=== PATIENT | female | born 1945 | race Caucasian/White ===

== ENCOUNTER → 2017-12-29 13:12 | Outpatient (CLI) | payer MEDICARE, OTHER, SELFPAY ==
--- NOTE | 2017-12-29 13:15 | DI.US.S_ITS ---
PROCEDURE: US PELVIC COMPLETE INDICATIONS: LEFT OVARIAN CYST TECHNIQUE: Real-time scanning was performed of the pelvic organs, with image documentation. Additional endovaginal scanning was necessary due to incomplete visualization of the adnexal and endometrial structures by transabdominal scanning. COMPARISON: [facility], , PELVIC COMPLETE, 10/05/2015, 8:07. [facility], , PELVIC COMPLETE, 12/03/2016, 10:34. FINDINGS: Transabdominal scanning: Limited scanning through the kidneys shows no hydronephrosis. No pathologic free abdominal or pelvic fluid. Endovaginal scanning: Uterus: Uterus is normal in size at 6.1 x 2.5 x 3.5 cm. The endometrium measures 1.2 mm in combined thickness. Ovaries: Simple cyst again seen involving the left ovary not significantly changed from prior examination measuring 3.0 x 2.0 x 2.5 cm compared to 2.4 x 2.2 x 2.5 cm on prior exam. IMPRESSION: 1. No significant interval change in appearance or size of simple left ovarian cyst with the subtle size differences likely technically related. Continued annual sonographic surveillance recommended. Dictated by: Jose LOYOLA Interpreted: Ildefonso Dodson MD on 12/29/2017 at 14:11 Approved by: Ildefonso Dodson M.D. on 12/29/2017 at 15:43
== END ==
PROVIDERS: PCP Physician Assistant; Visit Provider Physician Assistant
DX: N83.292 Other ovarian cyst, left side (principal)
CPT/HCPCS: 76830; 76856

== ENCOUNTER → 2018-02-16 15:51 | Outpatient (CLI) | payer MEDICARE, OTHER, SELFPAY ==
--- NOTE | 2018-02-16 15:54 | DI.RAD.S_ITS ---
PROCEDURE: XR LUMBAR SPINE MIN 4V INDICATIONS: Right hip pain TECHNIQUE: 5 views of the lumbar spine were acquired. COMPARISON: [facility], CR, XR HIP W PEL IF DONE RT 2V, 02/16/2018, 15:55. FINDINGS: Bones: 5 nonrib-bearing vertebrae are present. Mild levoscoliosis. Multilevel disc degeneration, severe at the L1-L2 level. Moderate lower lumbar spine facet joint arthropathy, worse at L4-L5 and L5-S1. Mild anterior wedging of the L1 vertebral body, suggestive of prior chronic fracture. No suspicious bony lesions. Left hip arthroplasty incompletely visualized. Soft tissues: Overlying bowel gas pattern is normal. No suspicious soft tissue calcifications. IMPRESSION: Mild to moderate multilevel degenerative changes of the lumbar spine as described above. Dictated by: Jose Whitley [facility] Interpreted: Neno Taylor MD on 02/16/2018 at 17:06 Approved by: Neno Taylor M.D. on 02/16/2018 at 19:50
--- NOTE | 2018-02-16 15:54 | DI.RAD.S_ITS ---
PROCEDURE: XR HIP W PEL IF DONE RT 2V INDICATIONS: right hip pain/pain in right lower leg TECHNIQUE: AP pelvis and lateral view of the right hip acquired. COMPARISON: [facility], CR, XR PELVIS W LATERAL HIP LT, 05/05/2015, 15:11. [facility], CR, HIP 2V LEFT, 04/11/2015, 7:42. FINDINGS: Bones: Left hip arthroplasty present hardware in expected position. No periprosthetic fracture seen. No evidence of loosening. There is severe narrowing of the right hip joint with periarticular osteophyte formation and subchondral sclerosis and cystic change. Soft tissues: Overlying postoperative changes are noted with surgical clips noted over the right iliac wing. No suspicious soft tissue densities. IMPRESSION: Left hip arthroplasty without evidence of acute hardware complication. Severe right hip joint degenerative change. Dictated by: Jose Whitley [facility] Interpreted: Neno Taylor MD on 02/16/2018 at 17:04 Approved by: Neno Taylor M.D. on 02/16/2018 at 19:48
== END ==
PROVIDERS: PCP Physician Assistant; Visit Provider Physician Assistant
DX: M16.11 Unilateral primary osteoarthritis, right hip (principal); M51.36 Other intervertebral disc degeneration, lumbar region; M25.551 Pain in right hip; M79.661 Pain in right lower leg; Z96.642 Presence of left artificial hip joint
CPT/HCPCS: 72110; 73502

== ENCOUNTER → 2018-05-18 14:51 | Outpatient (CLI) | payer MEDICARE, OTHER, SELFPAY ==
[2018-05-18 17:47] LABS: Add Manual Diff / Slide Review NO; Basophils Percent Auto 1.4 % (0-2); Eosinophils Percent Auto 2.7 % (2-4); Hematocrit 38.8 % (36-46); Lymphocytes Percent Auto 27.5 % (25-40); Mean Corpuscular HGB Conc 33.6 % (30-36); Mean Corpuscular Hemoglobin 31.8 PG (26-34); Mean Corpuscular Volume 94.6 fL (80-100); Monocytes Percent Auto 8.7 % (3-14); Neutrophils Absolute Auto 3100 /uL (3000-5900); Neutrophils Percent Auto 59.7 % (50-75); Platelet Count 231 X10^3/uL (150-400); Red Blood Cell Count 4.11 X10^6/uL (4.0-5.2); Red Cell Distribution Width 14.1 % (11.6-14.8); White Blood Cell Count 5.2 X10^3/uL (4.5-11.0)
[2018-05-18 18:21] LABS: BUN Creatinine Ratio 33.3 (6-22); Blood Urea Nitrogen 20 mg/dL (7-17); Calcium 9.2 mg/dL (8.4-10.2); Carbon Dioxide 32 mmol/L (22-32); Chloride 97 mmol/L (98-107); Estimated Glomerular Filt Rate > 60.0 mL/min (>60); Glucose 70 mg/dL (80-110); HEMOLYSIS < 15 (0-50); Potassium 4.4 mmol/L (3.4-5.1); Sodium 139 mmol/L (137-145)
== END ==
PROVIDERS: PCP Physician Assistant; Visit Provider Physician Assistant
DX: Z01.818 Encounter for other preprocedural examination (principal)
CPT/HCPCS: 36415; 80048; 85025; 87797

== ENCOUNTER → 2018-05-21 10:15 | Outpatient (CLI) | payer MEDICARE, OTHER, SELFPAY ==
[2018-05-24 14:18] LABS: Fecal Immunochemical Test NOT DETECTED
== END ==
PROVIDERS: PCP Physician Assistant; Visit Provider Physician Assistant
DX: Z12.11 Encounter for screening for malignant neoplasm of colon (principal)
CPT/HCPCS: 82274

== ENCOUNTER 2018-05-26 20:56 | Emergency (ER) | payer MEDICARE, OTHER, SELFPAY ==
[2018-05-26 20:59] VITALS: BP 154/88; PULSE 62; RESP 20; TEMP 36.9; O2SAT 100
[2018-05-27 00:25] VITALS: BP 157/72; PULSE 74; RESP 18; O2SAT 99
[2018-05-27 01:17] VITALS: BP 131/73; PULSE 70; RESP 18; O2SAT 98
--- NOTE | 2018-05-27 01:48 | ED.WOUNDLAC ---
HPI - Wound/Laceration General Chief Complaint: Wound/Laceration Stated Complaint: CAT BITE TO LT HAND, SWELLING Time Seen by Provider: 05/27/18 01:34 Source: patient Mode of arrival: ambulatory Limitations: no limitations History of Present Illness HPI narrative: patient is a 73-year-old female who presents with left hand injury. She was feeding her neighbor's cat this morning when the cat bit her. She has some swelling. No numbness or tingling in her fingers. A still able to move it. The cat has all of his shots. Her immunizations are up-to-date as well Onset (ago): hour(s) Related Data Home Medications Medication Instructions Recorded Confirmed [JAY/MAG/ZINC] 1,000 mg PO QDAY #0 10/30/17 05/18/18 [CBD OIL] TOPICAL BID #0 10/30/17 05/18/18 aspirin 81 mg tablet,delayed 81 mg PO DAILY 12/29/17 05/18/18 release Flaxseed oil 1,200 mg PO .qday 02/16/18 05/18/18 Glucosamine/Chondroitin See Label Instructions .ROUTE 02/16/18 05/18/18 .COMPLEX Multivitamin 1 tab PO .QDAY 02/16/18 05/18/18 Turmeric See Label Instructions .ROUTE 02/16/18 05/18/18 .COMPLEX Tylenol Arthritis See Label Instructions .ROUTE 02/16/18 05/18/18 .COMPLEX Previous Rx's Medication Instructions Recorded ranitidine 150 mg tablet 150 mg PO BID #180 tab 03/31/18 diclofenac 1 % topical gel See Label Instructions TOP QID 05/18/18 #100 gram amoxicillin-pot clavulanate 1 tab PO Q12H #14 tab 05/27/18 [Augmentin] Allergies Allergy/AdvReac Type Severity Reaction Status Date / Time NSAIDS (Non-Steroidal AdvReac Severe STRICTURE Verified 05/18/18 13:56 Anti-Inflamma BETWEEN MY [NSAIDS (NON-STEROIDAL STOMACH ANTI-INFLAMMA] AND INTESTINES oxycodone [OXYCODONE] AdvReac Severe DIZZINESS Verified 05/18/18 13:56 AND FAINTING Review of Systems Review of Systems GENERAL: Denies chills,fever HEENT: Denies throat pain RESPIRATORY: Denies dyspnea, cough, wheezing CARDIOVASCULAR: Denies chest pain, palpitations GASTROINTESTINAL: Denies nausea, vomiting MUSCULOSKELETAL: Denies extremity pain, injury SKIN: See HPI NEUROLOGIC: Denies weakness, dizziness, headache, numbness 8 point review of systems is negative except for those stated above and HPI PFSH Medical History Hypertension (Chronic Unknown) Osteoarthritis (Chronic Unknown) Osteopenia (Chronic Unknown) Parathyroid disorder (Chronic Unknown) Breast cancer (Resolved ~1996) Duodenal stricture (Resolved 12/2015) History of atrial fibrillation (Resolved 2013) 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 Social History Smoking Status: Never smoker second hand exposure: No alcohol intake: former substance use type: does not use Exam Initial Vital Signs Initial Vital Signs: Vital Signs Temperature 98.4 F 05/26/18 20:59 Pulse Rate 62 05/26/18 20:59 Respiratory Rate 20 05/26/18 20:59 Blood Pressure 154/88 H 05/26/18 20:59 Pulse Oximetry 100 05/26/18 20:59 GENERAL: Well-appearing, well-nourished and in no acute distress. CARDIOVASCULAR: peripheral pulses in tact, cap refill <2 sec RESPIRATORY: No respiratory distress, speaks in full sentences without difficulty EXTREMITIES: Normal range of motion, no clubbing or edema. Neurovascularly intact NEUROLOGICAL: Cranial nerves II through XII grossly intact. Normal gait and speech. SKIN: small puncture wounds on the left dorsal hand all full flexion extension of all fingers mild swelling no streaking no erythema no gross Course Orders Ordered: Discontinued Medications Amoxicillin/Clavulanate Potassium (Augmentin 875-125 Mg) 1 tab PO NOW ONE Stop: 05/27/18 01:40 Last Admin: 05/27/18 01:59 Dose: 1 tab Diphtheria/Tetanus/Acell Pertussis (Adacel) 0.5 ml IM .ONCE ONE Stop: 05/27/18 01:59 Last Admin: 05/27/18 01:59 Dose: 0.5 ml Vital Signs - 8 hr 05/27/18 00:25 05/27/18 01:17 05/27/18 02:04 Temperature 98.4 F Pulse Rate 74 70 79 Respiratory Rate 18 18 18 Blood Pressure 133/79 Blood Pressure [Right Arm] 157/72 H 131/73 Pulse Oximetry 99 98 100 Discharge Plan Departure Patient Disposition: Home Clinical Impression: Cat bite of left hand Discharge Date/Time: 05/27/18 02:10 Interventions: ED Discharge Assessment Last Done: 05/27/18 02:04 Instructions: Animal Bites Activity Restrictions/Additional Instructions: *You have been diagnosed with cat bite left hand *What to do: keep clean and dry with soap and water change dressing tomorrow *Continue to take medications as directed Augmentin twice daily for 7 days faxed to [facility] in [place] *Follow up with your primary care provider in 2-3 days *Return to ER if you should have red streaking, increased finger swelling, decreased motion any new, worsening or concerning symptoms Prescriptions: New amoxicillin-pot clavulanate [Augmentin] 875-125 mg tablet 1 tab PO Q12H Qty: 14 RF: 0 No Action diclofenac sodium 1 % gel See Label Instructions TOP QID Qty: 100 RF: 3 aspirin [Adult Aspirin Regimen] 81 mg tablet,delayed release (DR/EC) 81 mg PO DAILY RF: 0 Flaxseed oil 1,200 mg PO .qday RF: 0 Turmeric See Patient Comments .ROUTE .COMPLEX RF: 0 Tylenol Arthritis See Patient Comments .ROUTE .COMPLEX RF: 0 Multivitamin 1 tab PO .QDAY RF: 0 Glucosamine/Chondroitin See Patient Comments .ROUTE .COMPLEX RF: 0 [JAY/MAG/ZINC] 1,000 mg PO QDAY Qty: 0 RF: 0 [CBD OIL] Topical BID Qty: 0 RF: 0 ranitidine HCl 150 mg tablet 150 mg PO BID Qty: 180 RF: 3 Referrals: Lacey Lennon PA-C [Primary Care Provider] -
[2018-05-27] MEDS: AMOXICILLIN/CLAV 875/125 MG 1 TAB PO (01:59)
[2018-05-27] MEDS: TET,DIPH,PERTUSS(ACELL),VAC/PF 0.5 ML SYRINGE IM (01:59)
[2018-05-27 02:04] VITALS: BP 133/79; PULSE 79; RESP 18; TEMP 36.9; O2SAT 100
== END 2018-05-27 02:10 | disposition home or self-care (01) ==
PROVIDERS: Emergency Provider Emergency Medicine; Family Provider Physician Assistant; PCP Physician Assistant
DX: S61.452A Open bite of left hand, initial encounter (principal); W55.01XA Bitten by cat, initial encounter
CPT/HCPCS: 90471; 99283; 90715

== ENCOUNTER → 2018-05-29 10:04 | Outpatient (CLI) | payer MEDICARE, OTHER, SELFPAY | PROVIDERS: PCP Physician Assistant; Visit Provider Physician Assistant | DX: Z01.818 Encounter for other preprocedural examination (principal) | CPT/HCPCS: 93005 ==

== ENCOUNTER → 2018-08-10 12:48 | Outpatient (CLI) | payer MEDICARE, OTHER, SELFPAY ==
--- NOTE | 2018-08-10 12:50 | DI.MG.S_ITS ---
BILATERAL DIGITAL SCREENING MAMMOGRAM 3D/2D WITH CAD POST LUMPECTOMY: 08/10/2018 CLINICAL: Routine screening. Personal history of left breast cancer. Family history of breast cancer. Comparison is made to exams dated: 05/13/2017 mammogram, 04/26/2016 mammogram, and 03/27/2015 mammogram - [facility]. The tissue of both breasts is heterogeneously dense. This may lower the sensitivity of mammography. Current study was also evaluated with a Computer Aided Detection (CAD) system. The left breast has post-operative findings. There are stable benign calcifications in both breasts. No significant masses, calcifications, or other findings are seen in either breast. IMPRESSION: There is no mammographic evidence of malignancy. A 1 year screening mammogram is recommended. This exam was interpreted at Station ID: [id number]. NOTE: For mammograms, a report in lay terms will be sent to the patient. Approximately 15% of breast malignancies will not be visualized mammographically. In the management of a palpable breast mass, a negative mammogram must not discourage biopsy of a clinically suspicious lesion. Electronically Signed By: Marcus ellington/murali:08/10/2018 14:32:16 letter sent: Normal Exam ACR BI-RADS Category 2: Benign Finding(s) 3342F
== END ==
PROVIDERS: Family Provider Physician Assistant; PCP Physician Assistant; Visit Provider Physician Assistant
DX: Z12.31 Encounter for screening mammogram for malignant neoplasm of breast (principal); Z85.3 Personal history of malignant neoplasm of breast; Z80.3 Family history of malignant neoplasm of breast
CPT/HCPCS: 77063; 77067

== ENCOUNTER → 2019-09-06 13:06 | Outpatient (CLI) | payer MEDICARE, OTHER, SELFPAY ==
--- NOTE | 2019-09-06 | DI.MG.S_ITS ---
BILATERAL DIGITAL SCREENING MAMMOGRAM 3D/2D WITH CAD POST LUMPECTOMY: 09/06/2019 CLINICAL: Routine screening. Personal history of left breast cancer. Family history of breast cancer. Comparison is made to exams dated: 08/10/2018 mammogram, 05/13/2017 mammogram, and 04/26/2016 mammogram - [facility]. The tissue of both breasts is heterogeneously dense. This may lower the sensitivity of mammography. Current study was also evaluated with a Computer Aided Detection (CAD) system. The left breast has post-operative findings. There are benign diffuse punctate, round, and vascular calcifications in both breasts that are not significantly changed. There is a possible 0.4 cm oval equal density asymmetry in the right breast anterior depth superior region seen on the mediolateral oblique view only. No other significant masses, calcifications, or other findings are seen in either breast. IMPRESSION: INCOMPLETE: NEEDS ADDITIONAL IMAGING EVALUATION The possible 0.4 cm oval equal density asymmetry in the right breast is indeterminate. Additional views with possible ultrasound are recommended. This exam was interpreted at Station ID: [id number]. NOTE: For mammograms, a report in lay terms will be sent to the patient. Approximately 15% of breast malignancies will not be visualized mammographically. In the management of a palpable breast mass, a negative mammogram must not discourage biopsy of a clinically suspicious lesion. Electronically Signed By: Marcus Zavaleta M.D. aty/:09/06/2019 14:09:28 letter sent: Additional Imaging Needed ACR BI-RADS Category 0: Incomplete 3340F
--- NOTE | 2019-09-06 13:08 | DI.US.S_ITS ---
PROCEDURE: US PELVIC COMPLETE INDICATIONS: F/U LT OVARIAN CYST, ANNUAL SURVEILLANCE TECHNIQUE: Real-time scanning was performed of the pelvic organs, with image documentation. Additional endovaginal scanning was necessary due to incomplete visualization of the adnexal and endometrial structures by transabdominal scanning. COMPARISON: [facility], , US PELVIC COMPLETE, 12/29/2017, 13:32. FINDINGS: Transabdominal scanning: Limited scanning through the kidneys shows no hydronephrosis. No pathologic free abdominal or pelvic fluid. Endovaginal scanning: Uterus: Uterus is normal in size at 4.8 x 2.6 x 3.3 cm. The endometrium measures 1.3 mm in combined thickness. Ovaries: Right ovary measures 1.9 x 1.1 x 1.9 cm. Left ovary measures 4.0 x 2.4 x 2.9 cm. Redemonstration of a simple left ovarian cyst measuring approximately 3.5 x 2.4 x 2.7 cm. It previously measured 3.0 x 2.0 x 2.5 cm. No new or suspicious ovarian/adnexal mass lesions. IMPRESSION: Persistent simple left ovarian cyst measuring up to 3.5 cm in maximum dimension, previously 3.0 cm. No suspicious features identified. Recommend continued annual surveillance. Otherwise, normal appearance of the bilateral ovaries/adnexa. Dictated by: Marcus Zavaleta M.D. on 09/07/2019 at 9:50 Approved by: Marcus Zavaleta M.D. on 09/07/2019 at 9:55
== END ==
PROVIDERS: Family Provider Physician Assistant; PCP Physician Assistant; Referring Provider Physician Assistant; Visit Provider Physician Assistant
DX: Z12.31 Encounter for screening mammogram for malignant neoplasm of breast (principal); Z85.3 Personal history of malignant neoplasm of breast; Z80.3 Family history of malignant neoplasm of breast; N83.292 Other ovarian cyst, left side
CPT/HCPCS: 76830; 76856; 77063; 77067

== ENCOUNTER → 2019-09-21 13:49 | Outpatient (CLI) | payer MEDICARE, OTHER, SELFPAY ==
--- NOTE | 2019-09-21 13:53 | DI.MG.S_ITS ---
UNILATERAL RIGHT DIGITAL DIAGNOSTIC MAMMOGRAM 3D/2D WITH ADDITIONAL VIEWS: 09/21/2019 CLINICAL: Additional evaluation requested from prior study. Comparison is made to exams dated: 09/06/2019 mammogram, 08/10/2018 mammogram, and 05/13/2017 mammogram - [facility]. The tissue of right breast is heterogeneously dense. This may lower the sensitivity of mammography. The oval equal density asymmetry in the right breast anterior depth superior region seen on the mediolateral oblique view only is not seen in additional views. No other significant masses or calcifications are seen in the breast. IMPRESSION: There is no mammographic evidence of malignancy. A 1 year screening mammogram is recommended. This exam was interpreted at Station ID: [id number]. NOTE: For mammograms, a report in lay terms will be sent to the patient. Approximately 15% of breast malignancies will not be visualized mammographically. In the management of a palpable breast mass, a negative mammogram must not discourage biopsy of a clinically suspicious lesion. Electronically Signed By: Mercy sotelo/:09/21/2019 14:11:49 letter sent: Normal Exam ACR BI-RADS Category 2: Benign Finding(s) 3342F
== END ==
PROVIDERS: Family Provider Physician Assistant; PCP Physician Assistant; Referring Provider Physician Assistant; Visit Provider Physician Assistant
DX: R92.8 Other abnormal and inconclusive findings on diagnostic imaging of breast (principal); Z85.3 Personal history of malignant neoplasm of breast
CPT/HCPCS: 77065; G0279

== ENCOUNTER → 2020-01-11 13:22 | Outpatient (CLI) | payer MEDICARE, OTHER, SELFPAY ==
[2020-01-11 15:38] LABS: Alanine Aminotransferase 22 IU/L (<35); Albumin 4.4 g/dL (3.5-5.0); Albumin Globulin Ratio 1.6 (1.0-2.8); Alkaline Phosphatase 56 U/L (38-126); Aspartate Aminotransferase 39 IU/L (14-36); BUN Creatinine Ratio 30.8 (6-22); Bilirubin Total 0.2 mg/dL (0.2-1.3); Blood Urea Nitrogen 20 mg/dL (7-17); Calcium 9.8 mg/dL (8.4-10.2); Carbon Dioxide 33 mmol/L (22-32); Chloride 97 mmol/L (98-107); Estimated Glomerular Filt Rate > 60.0 mL/min (>60); Globulin 2.7 g/dL (1.7-4.1); Glucose 88 mg/dL (80-110); HEMOLYSIS < 15 (0-50); Potassium 5.1 mmol/L (3.4-5.1); Sodium 134 mmol/L (137-145); Total Protein 7.1 g/dL (6.3-8.2)
== END ==
PROVIDERS: Family Provider Physician Assistant; PCP Nurse Practitioner; Referring Provider Nurse Practitioner; Visit Provider Nurse Practitioner
DX: Z79.899 Other long term (current) drug therapy (principal)
CPT/HCPCS: 36415; 80053

== ENCOUNTER → 2020-02-10 09:42 | Outpatient (CLI) | payer MEDICARE, OTHER, SELFPAY ==
[2020-02-10 10:31] LABS: Alanine Aminotransferase 19 IU/L (<35); Albumin 4.2 g/dL (3.5-5.0); Albumin Globulin Ratio 1.8 (1.0-2.8); Alkaline Phosphatase 54 U/L (38-126); Aspartate Aminotransferase 33 IU/L (14-36); Bilirubin Total 0.2 mg/dL (0.2-1.3); Bilirubin Unconjugated 0.4 mg/dL (0.0-1.1); Globulin 2.4 g/dL (1.7-4.1); HEMOLYSIS < 15 (0-50); Total Protein 6.6 g/dL (6.3-8.2)
== END ==
PROVIDERS: Family Provider Physician Assistant; PCP Nurse Practitioner; Referring Provider Nurse Practitioner; Visit Provider Nurse Practitioner
DX: B35.1 Tinea unguium (principal); R74.8 Abnormal levels of other serum enzymes; Z79.899 Other long term (current) drug therapy
CPT/HCPCS: 36415; 80076

== ENCOUNTER → 2020-02-17 13:02 | Outpatient (CLI) | payer MEDICARE, OTHER, SELFPAY | PROVIDERS: Family Provider Physician Assistant; PCP Nurse Practitioner; Referring Provider Nurse Practitioner; Visit Provider Nurse Practitioner | DX: M81.0 Age-related osteoporosis without current pathological fracture (principal); Z78.0 Asymptomatic menopausal state; Z85.3 Personal history of malignant neoplasm of breast; Z82.62 Family history of osteoporosis | CPT/HCPCS: 77080 ==

== ENCOUNTER → 2020-04-11 08:32 | Outpatient (CLI) | payer MEDICARE, OTHER, SELFPAY ==
[2020-04-11 09:29] LABS: Alanine Aminotransferase 18 IU/L (<35); Albumin 4.3 g/dL (3.5-5.0); Albumin Globulin Ratio 1.5 (1.0-2.8); Alkaline Phosphatase 50 U/L (38-126); Aspartate Aminotransferase 33 IU/L (14-36); Bilirubin Total 0.3 mg/dL (0.2-1.3); Bilirubin Unconjugated 0.3 mg/dL (0.0-1.1); Globulin 2.8 g/dL (1.7-4.1); HEMOLYSIS < 15 (0-50); Total Protein 7.1 g/dL (6.3-8.2)
== END ==
PROVIDERS: Family Provider Physician Assistant; PCP Nurse Practitioner; Referring Provider Nurse Practitioner; Visit Provider Nurse Practitioner
DX: B35.1 Tinea unguium (principal); R74.8 Abnormal levels of other serum enzymes; Z79.899 Other long term (current) drug therapy
CPT/HCPCS: 36415; 80076

== ENCOUNTER → 2020-11-21 10:38 | Outpatient (CLI) | payer MEDICARE, OTHER, SELFPAY ==
--- NOTE | 2020-11-21 10:39 | DI.US.S_ITS ---
PROCEDURE: US PELVIC COMPLETE INDICATIONS: F/U LT OVARIAN CYST, ANNUAL SURVEILLANCE TECHNIQUE: Real-time scanning was performed of the pelvic organs, with image documentation. Additional endovaginal scanning was necessary due to incomplete visualization of the adnexal and endometrial structures by transabdominal scanning. COMPARISON: [facility], , PELVIC COMPLETE, 09/06/2019, 13:42. [facility], PELVIC COMPLETE, 12/29/2017, 13:32. FINDINGS: Uterus: Uterus is normal in size at 2.5 x 2.8 x 3.7 cm. The endometrium measures 1.0 mm in combined thickness. Ovaries: The right and left ovaries are not visualized independently but there is a cyst at the left adnexa presumably ovarian in origin, and this measures currently 2.8 x 2.7 x 3.3 cm. It previously had measured 2.7 x 2.4 x 3.5 cm 09/06/19. Other: No pathologic free abdominal or pelvic fluid. IMPRESSION: Previously identified left adnexal cyst, presumably ovarian in origin, which has not enlarged or diminished in size significantly from the comparison study in August of 2019. Normal appearing postmenopausal uterus. No acute disease. Dictated by: Elijah Durham M.D. on 11/21/2020 at 13:33 Approved by: Elijah Durham M.D. on 11/21/2020 at 13:35
--- NOTE | 2020-11-21 10:39 | DI.MG.S_ITS ---
BILATERAL DIGITAL SCREENING MAMMOGRAM 3D/2D WITH CAD: 11/21/2020 CLINICAL: Routine screening. Family history of breast cancer. Comparison is made to exams dated: 09/21/2019 mammogram, 09/06/2019 mammogram, 08/10/2018 mammogram, and 05/13/2017 mammogram - [facility]. The tissue of both breasts is heterogeneously dense. This may lower the sensitivity of mammography. Current study was also evaluated with a Computer Aided Detection (CAD) system. There are benign calcifications in both breasts. There also are benign vascular calcifications in both breasts. Additionally, there are benign post operative findings in the left breast. No significant masses, calcifications, or other findings are seen in either breast. There has been no significant interval change. IMPRESSION: BENIGN There is no mammographic evidence of malignancy. A 1 year screening mammogram is recommended. This exam was interpreted at Station ID: [id number]. NOTE: For mammograms, a report in lay terms will be sent to the patient. Approximately 15% of breast malignancies will not be visualized mammographically. In the management of a palpable breast mass, a negative mammogram must not discourage biopsy of a clinically suspicious lesion. Electronically Signed By: Cl parker/murali:11/21/2020 11:38:16 letter sent: Normal Exam ACR BI-RADS Category 2: Benign Finding(s) 3342F
== END ==
PROVIDERS: Family Provider Physician Assistant; PCP Nurse Practitioner; Referring Provider Nurse Practitioner; Visit Provider Nurse Practitioner
DX: Z12.31 Encounter for screening mammogram for malignant neoplasm of breast (principal); N83.202 Unspecified ovarian cyst, left side
CPT/HCPCS: 76830; 76856; 77063; 77067

== ENCOUNTER → 2020-12-02 10:55 | Outpatient (CLI) | payer MEDICARE, OTHER, SELFPAY ==
[2020-12-02 12:39] LABS: COVID19 -Nasal RAPID Negative (Negative)
== END ==
PROVIDERS: Family Provider Physician Assistant; PCP Nurse Practitioner; Referring Provider Student in an Organized Health Care Education/Training Program; Visit Provider Student in an Organized Health Care Education/Training Program
DX: Z01.812 Encounter for preprocedural laboratory examination (principal); Z20.822 Contact with and (suspected) exposure to COVID-19
CPT/HCPCS: 87635; C9803

== ENCOUNTER 2020-12-05 08:27 | Day surgery (SDC) | payer MEDICARE, OTHER, SELFPAY ==
[2020-12-05 09:19] VITALS: BP 116/72; PULSE 68; RESP 13; TEMP 36.5; O2SAT 100; BMI 18.6
[2020-12-05] MEDS: PROPARACAINE 0.5% OPHTH SOL 2 DROPS EYE-OP (09:27)
[2020-12-05] MEDS: CATARACT EYE COMPOUND (10 DROPS/SYRINGE) 3 DROPS EYE-OP (09:28)
--- NOTE | 2020-12-05 10:02 | PM.PREOP ---
Pre-operative Note Interval Note History & Physical reviewed/Exam performed by Physician: Yes Changes to H&P: No
--- NOTE | 2020-12-05 10:02 | PM.OP.1 ---
Operative Date/Time/Diagnoses Pre-op diagnosis: Nuclear cataract right eye Procedure & Clinicians Procedure: Cataract Surgery Same procedure as scheduled: Yes Surgeon: Sukhjinder Munroe Anesthesia Type: MAC +/- and Sedation Operative Notes Procedure in detail: Patient brought to the operating suite. Tetracaine drops placed in the right eye. Patient was prepped and draped in sterile manner. Wire lid speculum was placed in the eye. Betadine drops were placed on the eye. This was irrigated. Lidocaine jelly was placed on the eye. A paracentesis port was created with a side-port blade. 0.1 mL 1% preservative free lidocaine was injected into the anterior chamber. The anterior chamber was deepened with viscoelastic. 2.6 mm keratome was used to create a temporal clear corneal incision. Cystotome and Utrata forceps were used to create continuous tear capsulorrhexis. Balanced salt solution was used to hydro dissect the nucleus. The phacoemulsification handpiece was inserted and the nucleus was removed using the stop and chop technique. The irrigation aspiration handpiece was inserted and the remaining cortex was removed. Anterior chamber was deepened with viscoelastic. An Chun DIB00 intraocular lens with a power of 23.5 was injected into the capsular bag. Irrigation aspiration handpiece was inserted and the remaining viscoelastic was removed. Incision was hydrated with balanced salt solution and found to be leak free with pressure with Weck-Devika sponges. 0.1 mL Vigamox injected anterior chamber. 0.3 mL Kenalog 10 mg was injected subconjunctivally. Lid speculum was removed. The patient left the operating room in excellent condition. Complications: none Post-operative Condition: stable Disposition: same day surgery
[2020-12-05] MEDS: PHENYLEPHRINE/LIDOCAINE VIAL (OR) 0.2 ML EYE-OP (10:20)
[2020-12-05] MEDS: MOXIFLOXACIN INJ 4 MG/0.8 ML VIAL 0.5 MG EYE-OP (10:20)
[2020-12-05] MEDS: TRIAMCINOLONE 50 MG/5 ML VIAL INJ (10:20)
[2020-12-05] MEDS: BALANCED SALT IRRIG SOLN NO.2 500 ML, EPINEPHrine 1 MG IRR (10:21)
[2020-12-05] MEDS: LIDOCAINE 2% (GLYDO) 6 ML GEL TOP (10:21)
[2020-12-05] MEDS: TETRACAINE 0.5% OPHTH DROPS 4 ML 2 DROPS EYE-OP (10:21)
[2020-12-05] MEDS: CHONDROIDTIN/SOD HYALURONATE 1.05 ML SYRINGE INTRAOCULA (10:21)
[2020-12-05 10:35] VITALS: BP 129/84; PULSE 16; RESP 14; TEMP 36.4; O2SAT 99
== END 2020-12-05 10:45 | disposition home or self-care (01) ==
LOC: OR 08:28
PROVIDERS: Family Provider Physician Assistant; PCP Nurse Practitioner; Referring Provider Ophthalmology; Visit Provider Ophthalmology
PROC: (CPT 66984; principal; 2020-12-05 10:15)
DX: H25.11 Age-related nuclear cataract, right eye (principal); I10 Essential (primary) hypertension
CPT/HCPCS: 66984; J0171; J2250; J3010; J3301

== ENCOUNTER → 2020-12-16 10:13 | Outpatient (CLI) | payer MEDICARE, OTHER, SELFPAY ==
[2020-12-16 11:04] LABS: COVID19 -Nasal RAPID Negative (Negative)
== END ==
PROVIDERS: Family Provider Physician Assistant; PCP Nurse Practitioner; Referring Provider Physician Assistant; Visit Provider Physician Assistant
DX: Z01.812 Encounter for preprocedural laboratory examination (principal); Z20.822 Contact with and (suspected) exposure to COVID-19
CPT/HCPCS: 87635; C9803

== ENCOUNTER 2020-12-19 07:37 | Day surgery (SDC) | payer MEDICARE, OTHER, SELFPAY ==
[2020-12-19] MEDS: PROPARACAINE 0.5% OPHTH SOL 2 DROPS EYE-OP (07:55)
[2020-12-19] MEDS: CATARACT EYE COMPOUND (10 DROPS/SYRINGE) 3 DROPS EYE-OP ×2 (07:57→08:02)
[2020-12-19 08:04] VITALS: BP 119/78; PULSE 66; RESP 12; TEMP 36.6; O2SAT 100; BMI 41.1
--- NOTE | 2020-12-19 09:06 | P.OP_ITS ---
Operative Date/Time/Diagnoses Pre-op diagnosis: Nuclear Cataract Left eye Post-op diagnosis: same Procedure & Clinicians Same procedure as scheduled: Yes Surgeon: Sukhjinder Munroe Anesthesia Type: MAC +/- and Sedation Operative Notes Procedure in detail: Patient brought to the operating suite. Tetracaine drops placed in the left eye. Patient was prepped and draped in sterile manner. Wire lid speculum was placed in the eye. Betadine drops were placed on the eye. This was irrigated. Lidocaine jelly was placed on the eye. A paracentesis port was created with a side-port blade. 0.1 mL 1% preservative free lidocaine was injected into the anterior chamber. The anterior chamber was deepened with viscoelastic. 2.6 mm keratome was used to create a temporal clear corneal incision. Cystotome and Utrata forceps were used to create continuous tear capsulorrhexis. Balanced salt solution was used to hydro dissect the nucleus. The phacoemulsification handpiece was inserted and the nucleus was removed using the stop and chop technique. The irrigation aspiration handpiece was inserted and the remaining cortex was removed. Anterior chamber was deepened with viscoe lastic. An Chun DIB00 intraocular lens with a power of 26.0 was injected into the capsular bag. Irrigation aspiration handpiece was inserted and the remaining viscoelastic was removed. Incision was hydrated with balanced salt solution and found to be leak free with pressure with Weck-Devika sponges. 0.1 mL Vigamox injected anterior chamber. 0.3 mL Kenalog 10 mg was injected subconjunctivally. Lid speculum was removed. The patient left the operating room in excellent condition. Complications: none Post-operative Condition: stable Disposition: same day surgery
--- NOTE | 2020-12-19 09:06 | PM.PREOP ---
Pre-operative Note Interval Note History & Physical reviewed/Exam performed by Physician: Yes Changes to H&P: No
[2020-12-19] MEDS: CHONDROIDTIN/SOD HYALURONATE 1.05 ML SYRINGE INTRAOCULA (09:24)
[2020-12-19] MEDS: MOXIFLOXACIN INJ 4 MG/0.8 ML VIAL 0.5 MG EYE-OP (09:24)
[2020-12-19] MEDS: PHENYLEPHRINE/LIDOCAINE VIAL (OR) 0.2 ML EYE-OP (09:24)
[2020-12-19] MEDS: LIDOCAINE 2% (GLYDO) 6 ML GEL TOP (09:25)
[2020-12-19] MEDS: BALANCED SALT IRRIG SOLN NO.2 500 ML, EPINEPHrine 1 MG IRR (09:25)
[2020-12-19] MEDS: TRIAMCINOLONE 50 MG/5 ML VIAL INJ (09:25)
[2020-12-19] MEDS: TETRACAINE 0.5% OPHTH DROPS 4 ML 2 DROPS EYE-OP (09:25)
== END 2020-12-19 09:49 | disposition home or self-care (01) ==
PROVIDERS: Family Provider Physician Assistant; PCP Nurse Practitioner; Referring Provider Ophthalmology; Visit Provider Ophthalmology
PROC: (CPT 66984; principal; 2020-12-19 09:15)
DX: H25.12 Age-related nuclear cataract, left eye (principal); I10 Essential (primary) hypertension
CPT/HCPCS: 66984; J0171; J2250; J3301

== ENCOUNTER → 2021-01-30 09:13 | Outpatient (CLI) | payer MEDICARE, OTHER, SELFPAY ==
[2021-01-30 14:14] LABS: Alanine Aminotransferase 21 IU/L (<35); Albumin 4.2 g/dL (3.5-5.0); Albumin Globulin Ratio 1.6 (1.0-2.8); Alkaline Phosphatase 45 U/L (38-126); Aspartate Aminotransferase 38 IU/L (14-36); BUN Creatinine Ratio 36.5 (6-22); Bilirubin Total 0.2 mg/dL (0.2-1.3); Blood Urea Nitrogen 23 mg/dL (7-17); Calcium 9.2 mg/dL (8.4-10.2); Carbon Dioxide 30 mmol/L (22-32); Chloride 98 mmol/L (98-107); Estimated Glomerular Filt Rate > 60.0 mL/min (>60); Globulin 2.6 g/dL (1.7-4.1); Glucose 128 mg/dL (80-110); HEMOLYSIS < 15 (0-50); Sodium 133 mmol/L (137-145); Total Protein 6.8 g/dL (6.3-8.2)
[2021-01-30 15:11] LABS: Free T3, Triiodothyronine Free 3.42 pg/mL (2.77-5.27)
[2021-01-30 15:24] LABS: Thyroid Stimulating Hormone 4.13 uIU/mL (0.47-4.68)
== END ==
PROVIDERS: Family Provider Physician Assistant; PCP Nurse Practitioner; Referring Provider Nurse Practitioner; Visit Provider Nurse Practitioner
DX: M81.0 Age-related osteoporosis without current pathological fracture (principal); Z78.0 Asymptomatic menopausal state; I10 Essential (primary) hypertension; E21.5 Disorder of parathyroid gland, unspecified; L92.0 Granuloma annulare; Z79.83 Long term (current) use of bisphosphonates; Z85.3 Personal history of malignant neoplasm of breast; Z82.62 Family history of osteoporosis
CPT/HCPCS: 36415; 77080; 80053; 84439; 84443; 84481

== ENCOUNTER → 2021-02-06 14:40 | Outpatient (CLI) | payer MEDICARE, OTHER, SELFPAY ==
[2021-02-06 15:03] LABS: Bacteria Urine None Seen
[2021-02-06 15:54] LABS: Appearance Urine UA CLEAR; Bilirubin Urine UA NEGATIVE (NEGATIVE); Color Urine UA YELLOW; Glucose Urine UA NEGATIVE (Negative); Ketones Urine UA NEGATIVE (NEGATIVE); Leukocyte Esterase Urine UA 1+ (NEGATIVE); Nitrite Urine UA NEGATIVE (Negative); Occult Blood Urine UA 3+ (Negative); Protein Urine UA NEGATIVE (Negative); Specific Gravity Urine UA <=1.005 (1.000-1.035); Urobilinogen Urine UA 0.2 E.U./dL (0.2)
[2021-02-06 16:17] LABS: Culture Indicated Urine Specimen Cultured; RBC Urine 1-5/HPF (0-5/HPF); WBC Urine 5-10/HPF (0-5/HPF)
== END ==
PROVIDERS: Family Provider Physician Assistant; PCP Nurse Practitioner; Referring Provider Nurse Practitioner; Visit Provider Nurse Practitioner
DX: R31.9 Hematuria, unspecified (principal); R39.9 Unspecified symptoms and signs involving the genitourinary system
CPT/HCPCS: 36415; 81001; 87077; 87086; 87186

== ENCOUNTER → 2021-03-12 10:57 | Outpatient (CLI) | payer MEDICARE, OTHER, SELFPAY ==
[2021-03-12 11:13] LABS: Bacteria Urine None Seen; RBC Urine None Seen (0-5/HPF)
[2021-03-12 13:11] LABS: Appearance Urine UA CLEAR; Bilirubin Urine UA NEGATIVE (NEGATIVE); Color Urine UA YELLOW; Glucose Urine UA NEGATIVE (Negative); Ketones Urine UA NEGATIVE (NEGATIVE); Leukocyte Esterase Urine UA 1+ (NEGATIVE); Nitrite Urine UA NEGATIVE (Negative); Occult Blood Urine UA NEGATIVE (Negative); Protein Urine UA NEGATIVE (Negative); Specific Gravity Urine UA <=1.005 (1.000-1.035); Urobilinogen Urine UA 0.2 E.U./dL (0.2)
[2021-03-12 13:29] LABS: pH Urine UA 6.5 (4.5-8.0)
[2021-03-12 13:31] LABS: Alanine Aminotransferase 19 IU/L (<35); Albumin 4.2 g/dL (3.5-5.0); Albumin Globulin Ratio 1.6 (1.0-2.8); Alkaline Phosphatase 39 U/L (38-126); Aspartate Aminotransferase 36 IU/L (14-36); Bilirubin Total 0.3 mg/dL (0.2-1.3); Blood Urea Nitrogen 21 mg/dL (7-17); Calcium 9.7 mg/dL (8.4-10.2); Carbon Dioxide 30 mmol/L (22-32); Chloride 100 mmol/L (98-107); Cholesterol 228 mg/dL (140-199); Estimated Glomerular Filt Rate > 60.0 mL/min (>60); Globulin 2.7 g/dL (1.7-4.1); Glucose 83 mg/dL (80-110); HDL Cholesterol 88 mg/dL (40-60); HEMOLYSIS < 15 (0-50); LDL Cholesterol Calculated 126 mg/dL (<100); Potassium 4.6 mmol/L (3.4-5.1); Sodium 135 mmol/L (137-145); Total Protein 6.9 g/dL (6.3-8.2); Triglycerides 69 mg/dL (35-150)
[2021-03-12 13:33] LABS: Free T3, Triiodothyronine Free 3.71 pg/mL (2.77-5.27); Free T4, Direct Thyroxine 1.07 ng/dL (0.78-2.19)
[2021-03-12 13:34] LABS: Culture Indicated Urine Specimen Cultured; WBC Urine 5-10/HPF (0-5/HPF)
[2021-03-12 13:47] LABS: Thyroid Stimulating Hormone 4.45 uIU/mL (0.47-4.68)
== END ==
PROVIDERS: Family Provider Physician Assistant; PCP Nurse Practitioner; Referring Provider Nurse Practitioner; Visit Provider Nurse Practitioner
DX: N39.0 Urinary tract infection, site not specified (principal); I10 Essential (primary) hypertension; E21.5 Disorder of parathyroid gland, unspecified; E34.9 Endocrine disorder, unspecified; M81.0 Age-related osteoporosis without current pathological fracture; M81.8 Other osteoporosis without current pathological fracture; Z79.899 Other long term (current) drug therapy
CPT/HCPCS: 36415; 80053; 80061; 81001; 84439; 84443; 84481; 87086

== ENCOUNTER → 2021-06-11 08:15 | Outpatient (CLI) | payer MEDICARE, OTHER, SELFPAY ==
[2021-06-11 09:01] LABS: Add Manual Diff / Slide Review NO; Basophils Absolute Auto 0 /uL (0-100); Basophils Percent Auto 0.8 % (0-2); Eosinophils Absolute Auto 100 /uL (0-450); Eosinophils Percent Auto 2.5 % (2-4); Hematocrit 39.9 % (36-46); Hemoglobin 13.5 g/dL (12.0-16.0); Lymphocytes Absolute Auto 1100 /uL (1100-4500); Lymphocytes Percent Auto 26.8 % (25-40); Mean Corpuscular HGB Conc 33.8 % (30-36); Mean Corpuscular Hemoglobin 31.1 PG (26-34); Mean Corpuscular Volume 91.9 fL (80-100); Monocytes Absolute Auto 600 /uL (0-900); Monocytes Percent Auto 13.4 % (3-14); Neutrophils Absolute Auto 2300 /uL (1500-7000); Neutrophils Percent Auto 56.5 % (50-75); Platelet Count 240 X10^3/uL (150-400); Red Blood Cell Count 4.34 X10^6/uL (4.0-5.2); Red Cell Distribution Width 13.8 % (11.6-14.8); White Blood Cell Count 4.1 X10^3/uL (4.5-11.0)
[2021-06-11 09:25] LABS: BUN Creatinine Ratio 27.4 (6-22); Blood Urea Nitrogen 20 mg/dL (7-17); Calcium 9.5 mg/dL (8.4-10.2); Carbon Dioxide 30 mmol/L (22-32); Chloride 97 mmol/L (98-107); Cholesterol 231 mg/dL (140-199); Estimated Glomerular Filt Rate > 60.0 mL/min (>60); Glucose 74 mg/dL (80-110); HDL Cholesterol 102 mg/dL (40-60); HEMOLYSIS < 15 (0-50); LDL Cholesterol Calculated 118 mg/dL (<100); Potassium 4.6 mmol/L (3.4-5.1); Sodium 134 mmol/L (137-145); Triglycerides 54 mg/dL (35-150)
[2021-06-13 16:25] LABS: Glucose-6-Phosphate Dehydrogen 220 (127-427)
== END ==
PROVIDERS: Family Provider Physician Assistant; PCP Nurse Practitioner; Referring Provider Physician Assistant; Visit Provider Physician Assistant
DX: L92.0 Granuloma annulare (principal); Z83.42 Family history of familial hypercholesterolemia
CPT/HCPCS: 36415; 80048; 80061; 82955; 85025; 85041

== ENCOUNTER → 2021-06-27 10:20 | Outpatient (CLI) | payer MEDICARE, OTHER, SELFPAY ==
[2021-06-27 12:21] LABS: COVID19 -Nasal RAPID Negative (Negative)
== END ==
PROVIDERS: Family Provider Physician Assistant; PCP Nurse Practitioner; Visit Provider Physician Assistant
DX: Z20.822 Contact with and (suspected) exposure to COVID-19 (principal); R09.81 Nasal congestion; R19.7 Diarrhea, unspecified
CPT/HCPCS: 87635

== ENCOUNTER 2021-07-22 11:13 | Emergency (ER) | payer MEDICARE, OTHER, SELFPAY ==
--- NOTE | 2021-07-22 11:16 | ED.SKABFB ---
HPI - Skin/Abscess/Foreign Bdy General Chief complaint: Skin/Abscess/Foreign Body Stated complaint: face and body rash Time Seen by Provider: 07/22/21 11:15 History of Present Illness HPI narrative: 76-year-old female nonsmoker with history of hypertension, breast cancer, and granuloma annulare. She had been seen and evaluated by her infertility nurse recently was placed on a prescription of hydroxychloroquine. She had been on that medication for 8 days and stopped it 4 days ago. In the aftermath she developed a worsening pruritic rash on chest, abdomen, back and extremities that has been worsening and is coalesced on her belly. She has no trouble swallowing or breathing. She has not taken any hydroxychloroquine since Friday and her infertility nurse started her on antihistamines and steroids. She states that things are actually improving although slowly. She has an appointment with her infertility nurse tomorrow and after discussing her case he requested she come to see us. She does have a spot of tenderness inside her left cheek. She is eating and drinking without difficulty. She has had low-grade fever. She is otherwise well and free of complaint. Related Data Home Medications Medication Instructions Recorded Confirmed [JAY/MAG/ZINC] 1,000 mg PO QDAY #0 10/30/17 01/30/21 [CBD OIL] TOPICAL BID #0 10/30/17 01/30/21 Flaxseed oil 1,200 mg PO .qday 02/16/18 01/30/21 Glucosamine/Chondroitin See Rx Instructions .ROUTE .COMPLEX 02/16/18 01/30/21 Multivitamin 1 tab PO .QDAY 02/16/18 01/30/21 Turmeric See Rx Instructions .ROUTE .COMPLEX 02/16/18 01/30/21 Tylenol Arthritis See Rx Instructions .ROUTE .COMPLEX 02/16/18 01/30/21 acetaminophen 650 mg 650 mg PO .QD tab 03/06/20 01/30/21 tablet,extended release (Tylenol Arthritis Pain) aspirin 81 mg tablet,delayed 81 mg PO .QOD tab 03/06/20 01/30/21 release (Adult Aspirin Regimen) famotidine 20 mg tablet 20 mg PO DAILY 12/19/20 01/30/21 Previous Rx's Medication Instructions Recorded denosumab 60 mg/mL subcutaneous 60 mg SUBCUT [id number] #1 ml 02/09/21 syringe (Prolia) Allergies Allergy/AdvReac Type Severity Reaction Status Date / Time NSAIDS (Non-Steroidal AdvReac Severe STRICTURE Verified 01/30/21 08:46 Anti-Inflamma BETWEEN MY [NSAIDS (NON-STEROIDAL STOMACH ANTI-INFLAMMA] AND INTESTINES oxycodone [OXYCODONE] AdvReac Severe DIZZINESS Verified 01/30/21 08:46 AND FAINTING Review of Systems Review of Systems Narrative: GENERAL: Denies chills, fatigue, malaise, fever, sweats. HEENT: Denies sinus pain, ear pain, sore throat, difficulty swallowing, dizziness. RESPIRATORY: Denies dyspnea, cough, wheezing, hemoptysis, sputum. CARDIOVASCULAR: Denies chest pain, palpitations, orthopnea, edema, GASTROINTESTINAL: Denies nausea, vomiting, abdominal pain, diarrhea, constipation, melena. : Denies dysuria, frequency, incontinence, hematuria, urinary retention. MUSCULOSKELETAL: denies weakness, joint pain, or bony pain SKIN: see HPI NEUROLOGIC: Denies weakness, headache, numbness, change in speech, confusion, seizures, incoordination. PSYCHIATRIC: No concerning psychosocial issues. 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 Social History household members: significant other Smoking Status: Never smoker second hand exposure: No alcohol intake: current substance use type: does not use Smoking Status: Never smoker alcohol intake frequency: holidays/special occasions only Substance Use Type: does not use Exam Narrative Exam Narrative: GENERAL: [76 year old patient appears stated age. Well-developed patient, in no obvious or significant distress, resting comfortably. HEAD: Atraumatic. Normocephalic. EYES: Pupils equal round and reactive. Extraocular motions intact. No scleral icterus. No injection or drainage. ENT: No intraoral edema, erythema, sloughing, blisters. Nose without bleeding, purulent drainage. Throat without erythema, tonsillar hypertrophy or exudate. Airway patent. NECK: Trachea midline. Non tender CARDIOVASCULAR: Regular rate and rhythm without murmurs, gallops, or rubs. RESPIRATORY: Clear to auscultation. Breath sounds equal bilaterally. No wheezes, rales, or rhonchi. GASTROINTESTINAL: Abdomen soft, non-tender, nondistended. EXTREMITIES: No edema or joint tenderness. BACK: Nontender without deformity or crepitance. No flank tenderness. NEURO: AOx3. SKIN: Widespread, often circular and erythematous rash, most notable on lower abdomen and back that is blanching, very slightly raised and coalescing the more inferior it gets. There is negative Nikolsky sign Initial Vital Signs Initial Vital Signs: Vital Signs Temperature 99.9 F H 07/22/21 11:22 Pulse Rate 75 07/22/21 11:22 Respiratory Rate 16 07/22/21 11:22 Blood Pressure 158/78 H 07/22/21 11:22 Pulse Oximetry 97 07/22/21 11:22 Course Orders Ordered: ED Orders 07/22/21 11:50 CBC Auto Diff [Complete Blood Count AUTO DIFF] Stat CMP [Comprehensive Metabolic Panel] Stat Consultations Consultation #1: Discussed with her infertility nurse, we sure the opinion that this is likely on the continuum of hypersensitivity reaction but no findings in history, physical or labs to suggest progression to [place], let alone TEN. He will see her in the office as planned tomorrow Vital Signs Vital signs: Vital Signs - 8 hr 07/22/21 11:22 07/22/21 11:30 07/22/21 12:00 Temperature 99.9 F H Pulse Rate 86 75 75 Respiratory Rate 16 Blood Pressure 158/78 H 137/64 122/60 Pulse Oximetry 94 98 97 07/22/21 12:30 Temperature Pulse Rate 69 Respiratory Rate Blood Pressure 115/55 L Pulse Oximetry 95 MDM - Skin/Abscess/Foreign Bdy Lab Data Result diagrams: 07/22/21 11:50 07/22/21 11:50 Labs: Lab Results 07/22/21 07/22/21 Range/Units 11:50 11:50 WBC 10.5 (4.5-11.0) X10^3/uL RBC 4.25 (4.0-5.2) X10^6/uL Hgb 13.1 (12.0-16.0) g/dL Hct 38.3 (36-46) % MCV 90.3 (80-100) fL MCH 30.8 (26-34) PG MCHC 34.2 (30-36) % RDW 13.5 (11.6-14.8) % Plt Count 248 (150-400) X10^3/uL Neut % (Auto) 84.9 H (50-75) % Lymph % (Auto) 3.6 L (25-40) % [place] % (Auto) 3.0 (3-14) % Eos % (Auto) 8.1 H (2-4) % Baso % (Auto) 0.4 (0-2) % Neut # (Auto) 8900 H (4555-3234) /uL Lymph # (Auto) 400 L (9796-0035) /uL [place] # (Auto) 300 (0-900) /uL Eos # (Auto) 900 H (0-450) /uL Baso # (Auto) 0 (0-100) /uL Sodium 130 L (137-145) mmol/L Potassium 4.1 (3.4-5.1) mmol/L Chloride 95 L (98-107) mmol/L Carbon Dioxide 32 (22-32) mmol/L BUN 18 H (7-17) mg/dL Creatinine 0.64 (0.52-1.04) mg/dL Estimated GFR > 60.0 (>60) mL/min BUN/Creatinine Ratio 28.1 H (6-22) Glucose 111 H (80-110) mg/dL Calcium 9.5 (8.4-10.2) mg/dL Total Bilirubin 0.2 (0.2-1.3) mg/dL AST 27 (14-36) IU/L ALT 17 (<35) IU/L Alkaline Phosphatase 56 (38-126) U/L Total Protein 6.6 (6.3-8.2) g/dL Albumin 3.9 (3.5-5.0) g/dL Globulin 2.7 (1.7-4.1) g/dL Albumin/Globulin Ratio 1.4 (1.0-2.8) MDM Narrative Medical decision making narrative: Patient with slight improvement in generalized rash that started after taking hydroxychloroquine. Little improvement with steroids and antihistamines would suggest against a histamine mediated reaction. 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 Will continue supportive care, encourage follow up tomorrow as planned and return precautions. Patient understands and agrees with the plan. Her questions have been answered to her apparent satisfaction Discharge Plan Departure Patient Disposition: Home Clinical Impression: Drug hypersensitivity Instructions: DI for Adverse Drug Reaction -- Other Activity Restrictions/Additional Instructions: *You have been diagnosed with [rash most consistent with drug hypersensitivity, not a true allergic reaction. *What to do: *Please continue to take your regular medications as directed. [ ] New medication prescriptions sent to your pharmacy: [ ] [ ] New medication written as a paper prescription [x ] No new medications given *Please follow up with your infertility nurse tomorrow as planned. I spoke with him on the phone today and we are in agreement about [place] likely diagnosis and plan moving forward. *Return to Emergency Department if you should have any new, worsening or concerning symptoms, such as [fever greater than 101 F, shaking chills, trouble breathing, swallowing or other bothersome symptoms Prescriptions: No Action aspirin [Adult Aspirin Regimen] 81 mg tablet,delayed release (DR/EC) 81 mg PO .QOD 0RF Flaxseed oil 1,200 mg PO .qday 0RF Turmeric See Rx Instructions .ROUTE .COMPLEX 0RF Label Comments: 1200 mg (600 mg x 2) by mouth once daily. ; Rx Instructions: 1200 mg (600 mg x 2) by mouth once daily. ; Tylenol Arthritis See Rx Instructions .ROUTE .COMPLEX 0RF Label Comments: 1300 mg (650 mg x 2) by mouth twice daily. ; Rx Instructions: 1300 mg (650 mg x 2) by mouth twice daily. ; Multivitamin 1 tab PO .QDAY 0RF Glucosamine/Chondroitin See Rx Instructions .ROUTE .COMPLEX 0RF Label Comments: Take 1 to 2 tablets by mouth once daily. ; Rx Instructions: Take 1 to 2 tablets by mouth once daily. ; [JAY/MAG/ZINC] 1,000 mg PO QDAY Qty: 0 0RF [CBD OIL] Topical BID Qty: 0 0RF acetaminophen [Tylenol Arthritis Pain] 650 mg tablet extended release 650 mg PO .QD 0RF Prolia 60 mg/mL syringe 60 mg SUBCUT [id number] Qty: 1 1RF Rx Instructions: Inject 1mL 60mg IM every 6 months for worsening osteoporosis due to parathyroid disease. famotidine 20 mg tablet 20 mg PO DAILY 0RF Referrals: Marti Musa ARNP [Primary Care Provider] -
[2021-07-22 11:22] VITALS: BP 158/78; PULSE 75; PULSE 86; RESP 16; TEMP 37.7; O2SAT 94; O2SAT 97; BMI 18.6
[2021-07-22 11:30] VITALS: BP 137/64; PULSE 75; O2SAT 98
[2021-07-22 11:59] LABS: Add Manual Diff / Slide Review NO; Basophils Absolute Auto 0 /uL (0-100); Basophils Percent Auto 0.4 % (0-2); Eosinophils Absolute Auto 900 /uL (0-450); Eosinophils Percent Auto 8.1 % (2-4); Hematocrit 38.3 % (36-46); Hemoglobin 13.1 g/dL (12.0-16.0); Lymphocytes Absolute Auto 400 /uL (1100-4500); Lymphocytes Percent Auto 3.6 % (25-40); Mean Corpuscular HGB Conc 34.2 % (30-36); Mean Corpuscular Hemoglobin 30.8 PG (26-34); Mean Corpuscular Volume 90.3 fL (80-100); Monocytes Absolute Auto 300 /uL (0-900); Neutrophils Absolute Auto 8900 /uL (1500-7000); Neutrophils Percent Auto 84.9 % (50-75); Platelet Count 248 X10^3/uL (150-400); Red Blood Cell Count 4.25 X10^6/uL (4.0-5.2); Red Cell Distribution Width 13.5 % (11.6-14.8); White Blood Cell Count 10.5 X10^3/uL (4.5-11.0)
[2021-07-22 12:00] VITALS: BP 122/60; PULSE 75; O2SAT 97
[2021-07-22 12:30] VITALS: BP 115/55; PULSE 69; O2SAT 95
[2021-07-22 12:36] LABS: Alanine Aminotransferase 17 IU/L (<35); Albumin 3.9 g/dL (3.5-5.0); Albumin Globulin Ratio 1.4 (1.0-2.8); Alkaline Phosphatase 56 U/L (38-126); Aspartate Aminotransferase 27 IU/L (14-36); BUN Creatinine Ratio 28.1 (6-22); Bilirubin Total 0.2 mg/dL (0.2-1.3); Blood Urea Nitrogen 18 mg/dL (7-17); Calcium 9.5 mg/dL (8.4-10.2); Carbon Dioxide 32 mmol/L (22-32); Chloride 95 mmol/L (98-107); Estimated Glomerular Filt Rate > 60.0 mL/min (>60); Globulin 2.7 g/dL (1.7-4.1); Glucose 111 mg/dL (80-110); HEMOLYSIS < 15 (0-50); Potassium 4.1 mmol/L (3.4-5.1); Sodium 130 mmol/L (137-145); Total Protein 6.6 g/dL (6.3-8.2)
== END 2021-07-22 13:17 | disposition home or self-care (01) ==
PROVIDERS: Emergency Provider Emergency Medicine; Family Provider Physician Assistant; PCP Nurse Practitioner
DX: L27.0 Generalized skin eruption due to drugs and medicaments taken internally (principal); T37.8X5A Adverse effect of other specified systemic anti-infectives and antiparasitics, initial encounter
CPT/HCPCS: 36415; 80053; 85025; 99283

== ENCOUNTER → 2021-12-17 10:58 | Outpatient (CLI) | payer MEDICARE, OTHER, SELFPAY ==
--- NOTE | 2021-12-17 11:01 | DI.MG.S_ITS ---
BILATERAL DIGITAL SCREENING MAMMOGRAM 3D/2D WITH CAD: 12/17/2021 CLINICAL: Routine screening. Routine screening. Personal history of left breast cancer. Family history of breast cancer. Comparison is made to exams dated: 11/21/2020 mammogram, 09/06/2019 mammogram, and 08/10/2018 mammogram - [facility]. There are scattered fibroglandular elements in both breasts. Current study was also evaluated with a Computer Aided Detection (CAD) system. There are benign calcifications in both breasts. There also are benign vascular calcifications in both breasts. Additionally, there are benign post operative findings in the left breast. No significant masses, calcifications, or other findings are seen in either breast. There has been no significant interval change. IMPRESSION: BENIGN There is no mammographic evidence of malignancy. A 1 year screening mammogram is recommended. This exam was interpreted at Station ID: [id number]. NOTE: For mammograms, a report in lay terms will be sent to the patient. Approximately 15% of breast malignancies will not be visualized mammographically. In the management of a palpable breast mass, a negative mammogram must not discourage biopsy of a clinically suspicious lesion. Electronically Signed By: Naz witt/murali:12/17/2021 13:49:17 letter sent: Normal Exam ACR BI-RADS Category 2: Benign Finding(s) 3342F
== END ==
PROVIDERS: PCP Nurse Practitioner; Referring Provider Nurse Practitioner; Visit Provider Nurse Practitioner
DX: Z12.31 Encounter for screening mammogram for malignant neoplasm of breast (principal); Z85.3 Personal history of malignant neoplasm of breast; Z80.3 Family history of malignant neoplasm of breast
CPT/HCPCS: 77063; 77067

== ENCOUNTER → 2022-01-04 09:46 | Outpatient (CLI) | payer MEDICARE, OTHER, SELFPAY ==
[2022-01-04 10:51] LABS: Appearance Urine UA CLEAR; Bilirubin Urine UA NEGATIVE (NEGATIVE); Color Urine UA YELLOW; Glucose Urine UA NEGATIVE (Negative); Ketones Urine UA NEGATIVE (NEGATIVE); Leukocyte Esterase Urine UA TRACE (NEGATIVE); Nitrite Urine UA NEGATIVE (Negative); Occult Blood Urine UA NEGATIVE (Negative); Protein Urine UA NEGATIVE (Negative); Specific Gravity Urine UA <=1.005 (1.000-1.035); Urobilinogen Urine UA 0.2 E.U./dL (0.2)
[2022-01-04 10:53] LABS: pH Urine UA 6.5 (4.5-8.0)
[2022-01-04 10:59] LABS: Bacteria Urine None Seen; Culture Indicated Urine Cult Not Indicated; RBC Urine None Seen (0-5/HPF); WBC Urine None Seen (0-5/HPF)
== END ==
PROVIDERS: PCP Nurse Practitioner; Referring Provider Nurse Practitioner; Visit Provider Nurse Practitioner
DX: R30.0 Dysuria (principal)
CPT/HCPCS: 81001

== ENCOUNTER → 2022-01-08 15:35 | Outpatient (CLI) | payer MEDICARE, OTHER, SELFPAY | PROVIDERS: PCP Nurse Practitioner; Visit Provider Nurse Practitioner | DX: N89.8 Other specified noninflammatory disorders of vagina (principal) | CPT/HCPCS: 87070; 87147; 87205 ==

== ENCOUNTER → 2022-01-31 09:20 | Outpatient (CLI) | payer MEDICARE, OTHER, SELFPAY ==
[2022-01-31 11:11] LABS: Alanine Aminotransferase 22 IU/L (<35); Albumin 4.1 g/dL (3.5-5.0); Albumin Globulin Ratio 1.7 (1.0-2.8); Alkaline Phosphatase 40 U/L (38-126); Aspartate Aminotransferase 37 IU/L (14-36); BUN Creatinine Ratio 33.3 (6-22); Bilirubin Total 0.4 mg/dL (0.2-1.3); Blood Urea Nitrogen 24 mg/dL (7-17); Calcium 8.8 mg/dL (8.4-10.2); Carbon Dioxide 31 mmol/L (22-32); Chloride 97 mmol/L (98-107); Estimated Glomerular Filt Rate > 60 mL/min (>60); Globulin 2.4 g/dL (1.7-4.1); Glucose 81 mg/dL (80-110); HEMOLYSIS < 15 (0-50); Potassium 4.8 mmol/L (3.4-5.1); Sodium 133 mmol/L (137-145); Total Protein 6.5 g/dL (6.3-8.2)
[2022-01-31 12:33] LABS: Free T3, Triiodothyronine Free 3.79 pg/mL (2.77-5.27); Free T4, Direct Thyroxine 1.02 ng/dL (0.78-2.19)
[2022-01-31 12:46] LABS: Thyroid Stimulating Hormone 2.99 uIU/mL (0.47-4.68)
== END ==
PROVIDERS: PCP Nurse Practitioner; Referring Provider Nurse Practitioner; Visit Provider Nurse Practitioner
DX: I10 Essential (primary) hypertension (principal); E21.5 Disorder of parathyroid gland, unspecified; E34.9 Endocrine disorder, unspecified; M81.8 Other osteoporosis without current pathological fracture; Z79.899 Other long term (current) drug therapy
CPT/HCPCS: 36415; 80053; 84439; 84443; 84481

== ENCOUNTER → 2022-02-08 11:15 | Outpatient (CLI) | payer MEDICARE, OTHER, SELFPAY | PROVIDERS: PCP Nurse Practitioner; Referring Provider Nurse Practitioner; Visit Provider Nurse Practitioner | DX: M81.0 Age-related osteoporosis without current pathological fracture (principal); M81.8 Other osteoporosis without current pathological fracture; E34.9 Endocrine disorder, unspecified; E21.5 Disorder of parathyroid gland, unspecified | CPT/HCPCS: 77080 ==

== ENCOUNTER → 2022-02-11 16:57 | Outpatient (CLI) | payer MEDICARE, OTHER, SELFPAY ==
[2022-02-11 18:17] LABS: Add Manual Diff / Slide Review NO; Basophils Absolute Auto 0 /uL (0-100); Basophils Percent Auto 0.7 % (0-2); Eosinophils Absolute Auto 100 /uL (0-450); Eosinophils Percent Auto 1.2 % (2-4); Hematocrit 37.3 % (36-46); Hemoglobin 12.8 g/dL (12.0-16.0); Lymphocytes Absolute Auto 1500 /uL (1100-4500); Lymphocytes Percent Auto 23.8 % (25-40); Mean Corpuscular HGB Conc 34.2 % (30-36); Mean Corpuscular Hemoglobin 31.5 PG (26-34); Mean Corpuscular Volume 92.1 fL (80-100); Monocytes Absolute Auto 600 /uL (0-900); Monocytes Percent Auto 9.5 % (3-14); Neutrophils Absolute Auto 4000 /uL (1500-7000); Neutrophils Percent Auto 64.8 % (50-75); Platelet Count 235 X10^3/uL (150-400); Red Blood Cell Count 4.06 X10^6/uL (4.0-5.2); Red Cell Distribution Width 14.5 % (11.6-14.8); White Blood Cell Count 6.1 X10^3/uL (4.5-11.0)
[2022-02-11 18:48] LABS: Alanine Aminotransferase 25 IU/L (<35); Albumin 4.1 g/dL (3.5-5.0); Albumin Globulin Ratio 1.6 (1.0-2.8); Alkaline Phosphatase 55 U/L (38-126); Aspartate Aminotransferase 33 IU/L (14-36); BUN Creatinine Ratio 29.8 (6-22); Bilirubin Total 0.3 mg/dL (0.2-1.3); Blood Urea Nitrogen 17 mg/dL (7-17); Calcium 9.5 mg/dL (8.4-10.2); Carbon Dioxide 30 mmol/L (22-32); Chloride 96 mmol/L (98-107); Estimated Glomerular Filt Rate > 60 mL/min (>60); Globulin 2.6 g/dL (1.7-4.1); Glucose 91 mg/dL (80-110); HEMOLYSIS < 15 (0-50); Sodium 132 mmol/L (137-145); Total Protein 6.7 g/dL (6.3-8.2)
[2022-02-13 19:29] LABS: C difficie Toxins A and B, EIA Positive (Negative)
== END ==
PROVIDERS: PCP Nurse Practitioner; Referring Provider Nurse Practitioner; Visit Provider Nurse Practitioner
DX: R10.9 Unspecified abdominal pain (principal); R53.83 Other fatigue; R19.7 Diarrhea, unspecified
CPT/HCPCS: 36415; 80053; 85025; 87177; 87324

== ENCOUNTER → 2022-05-15 14:00 | Outpatient (CLI) | payer MEDICARE, OTHER, SELFPAY ==
[2022-05-15 15:20] LABS: Alanine Aminotransferase 18 IU/L (<35); Albumin 4.1 g/dL (3.5-5.0); Albumin Globulin Ratio 1.4 (1.0-2.8); Alkaline Phosphatase 55 U/L (38-126); Aspartate Aminotransferase 30 IU/L (14-36); BUN Creatinine Ratio 33.3 (6-22); Bilirubin Total 0.1 mg/dL (0.2-1.3); Blood Urea Nitrogen 21 mg/dL (7-17); Carbon Dioxide 32 mmol/L (22-32); Chloride 95 mmol/L (98-107); Estimated Glomerular Filt Rate > 60 mL/min (>60); Globulin 2.9 g/dL (1.7-4.1); Glucose 94 mg/dL (80-110); HEMOLYSIS < 15 (0-50); Sodium 134 mmol/L (137-145)
== END ==
PROVIDERS: PCP Nurse Practitioner; Referring Provider Nurse Practitioner; Visit Provider Nurse Practitioner
DX: M81.0 Age-related osteoporosis without current pathological fracture (principal); Z79.83 Long term (current) use of bisphosphonates
CPT/HCPCS: 36415; 80053

== ENCOUNTER → 2022-12-31 14:27 | Outpatient (CLI) | payer MEDICARE, OTHER, SELFPAY ==
--- NOTE | 2022-12-31 14:28 | DI.RAD.S_ITS ---
Bone Density Report Name: JACIEL AWAN Age: 77 Sex: Female Ethnicity: White Date of : 1945 Indication: postmenopausal; screening for osteoporosis; Referring Provider: FREDERICK WALTON Study: Bone densitometry was performed. Exam Date: December 31, 2022 Accession number: [id number] Bone Density: Region BMD T-score Z-score Classification AP Spine(L1-L4) 0.989 -0.5 2.0 Normal Total Forearm (Left) 0.515 -1.2 1.6 Osteopenia 1/3 Forearm (Left) 0.638 -0.9 1.9 Normal UD Forearm (Left) 0.394 -0.8 1.2 Normal World Health Organization criteria for BMD impression classify patients as: Normal (T-score at or above -1.0), Osteopenia (T-score between -1.0 and -2.5), or Osteoporosis (T-score at or below -2.5). Previous Exams: -- Region Exam Age BMD T-score BMD Change BMD Change Date g/cm2 vs Baseline vs Previous -- AP Spine (L1-L4) 12/31/2022 77 0.989 -0.5 0.011 (1.1%) 0.011 (1.1%) 02/08/2022 76 0.978 -0.6 1/3 Forearm(Left) 12/31/2022 77 0.638 -0.9 -0.016 (-2.5%) -0.016 (-2.5%) 02/08/2022 76 0.654 -0.7 -- *Denotes significance at 95% confidence level, LSC for AP Spine = 0.022 g/cm2, LSC for 1/3 Forearm = 0.023 g/cm2 Impression: The patient has normal bone mass. No significant bone loss was observed. Discussion: BONE DENSITY IS ABOVE THE MINIMUM DESIRABLE LEVEL AT ALL SKELETAL SITES TESTED. This patient's bone mineral density is above the minimum desirable level (T-score -1.0 or better) at all sites measured. The patient should follow a healthful lifestyle (good nutrition with adequate calcium and vitamin D, and appropriate weight-bearing exercise). Follow-Up: Consider repeating this study in 5 years or sooner if there is some new clinical indication. Reported by: AVIS LOMBARDO M.D. on 12/31/2022 3:16:00 PM.
--- NOTE | 2022-12-31 14:28 | DI.MG.S_ITS ---
BILATERAL DIGITAL SCREENING MAMMOGRAM 3D/2D WITH CAD POST LUMPECTOMY: 12/31/2022 CLINICAL: Routine screening. Personal history of left breast cancer. Family history of breast cancer. Comparison is made to exams dated: 12/17/2021 mammogram, 11/21/2020 mammogram, and 09/06/[address] mamm[address] - [facility]. There are scattered areas of fibroglandular density in both breasts (category b / 25%-50% glandular tissue). Current study was also evaluated with a Computer Aided Detection (CAD) system. There are benign calcifications in both breasts. There also are benign vascular calcifications in both breasts. Additionally, there are benign post operative findings in the left breast. No significant masses, calcifications, or other findings are seen in either breast. There has been no significant interval change. IMPRESSION: BENIGN There is no mammographic evidence of malignancy. A 1 year screening mammogram is recommended. This exam was interpreted at Station ID: [id number]. NOTE: For mammograms, a report in lay terms will be sent to the patient. Approximately 15% of breast malignancies will not be visualized mammographically. In the management of a palpable breast mass, a negative mammogram must not discourage biopsy of a clinically suspicious lesion. Electronically Signed By: Golden ramirez/murali:12/31/2022 15:08:54 letter sent: Normal Exam ACR BI-RADS Category 2: Benign Finding(s) 3342F
== END ==
PROVIDERS: PCP Nurse Practitioner; Referring Provider Nurse Practitioner; Visit Provider Nurse Practitioner
DX: Z12.31 Encounter for screening mammogram for malignant neoplasm of breast; Z85.3 Personal history of malignant neoplasm of breast; Z80.3 Family history of malignant neoplasm of breast; Z13.820 Encounter for screening for osteoporosis; E34.9 Endocrine disorder, unspecified; Z78.0 Asymptomatic menopausal state
CPT/HCPCS: 77063; 77067; 77080; 77081

== ENCOUNTER → 2024-01-20 10:59 | Outpatient (CLI) | payer MEDICARE, OTHER, SELFPAY ==
--- NOTE | 2024-01-20 | DI.MG.S_ITS ---
BILATERAL DIGITAL SCREENING MAMMOGRAM 3D/2D WITH CAD POST LUMPECTOMY: 01/20/2024 CLINICAL: Routine screening. Personal history of left breast cancer. Family history of breast cancer. Comparison is made to exams dated: 12/31/2022 mammogram, 12/17/2021 mammogram, and 11/21/2020 mammogram - [facility]. There are scattered areas of fibroglandular density in both breasts (category b / 25%-50% glandular tissue). Current study was also evaluated with a Computer Aided Detection (CAD) system. There are benign calcifications in both breasts. There also are benign vascular calcifications in both breasts. Additionally, there are benign post operative findings in the left breast. No significant masses, calcifications, or other findings are seen in either breast. There has been no significant interval change. IMPRESSION: BENIGN There is no mammographic evidence of malignancy. A 1 year screening mammogram is recommended. This exam was interpreted at Station ID: [id number]. NOTE: For mammograms, a report in lay terms will be sent to the patient. Approximately 15% of breast malignancies will not be visualized mammographically. In the management of a palpable breast mass, a negative mammogram must not discourage biopsy of a clinically suspicious lesion. Electronically Signed By: Naz witt/murali:01/20/2024 12:11:51 letter sent: Normal Exam ACR BI-RADS Category 2: Benign Finding(s) 3342F
== END ==
PROVIDERS: PCP Nurse Practitioner; Referring Provider Nurse Practitioner; Visit Provider Nurse Practitioner
DX: Z12.31 Encounter for screening mammogram for malignant neoplasm of breast (principal); Z85.3 Personal history of malignant neoplasm of breast; Z80.3 Family history of malignant neoplasm of breast; R92.323 Mammographic fibroglandular density, bilateral breasts
CPT/HCPCS: 77063; 77067

== ENCOUNTER → 2024-02-10 07:03 | Outpatient (CLI) | payer MEDICARE, OTHER, SELFPAY ==
[2024-02-10 08:56] LABS: Alanine Aminotransferase 17 IU/L (<35); Albumin 4.1 g/dL (3.5-5.0); Albumin Globulin Ratio 1.6 (1.0-2.8); Alkaline Phosphatase 62 U/L (38-126); Aspartate Aminotransferase 30 IU/L (14-36); BUN Creatinine Ratio 21.3 (6-22); Bilirubin Total 0.6 mg/dL (0.2-1.3); Blood Urea Nitrogen 13 mg/dL (7-17); Carbon Dioxide 31 mmol/L (22-32); Chloride 101 mmol/L (98-107); Cholesterol 231 mg/dL (140-199); Estimated Glomerular Filt Rate > 60 mL/min (>60); Globulin 2.5 g/dL (1.7-4.1); Glucose 84 mg/dL (80-110); HDL Cholesterol 108 mg/dL (40-60); HEMOLYSIS < 15 (0-50); LDL Cholesterol Calculated 113 mg/dL (<100); Potassium 4.4 mmol/L (3.4-5.1); Sodium 136 mmol/L (137-145); Total Protein 6.6 g/dL (6.3-8.2); Triglycerides 48 mg/dL (35-150)
[2024-02-10 12:08] LABS: Free T3, Triiodothyronine Free 4.27 pg/mL (2.77-5.27); Free T4, Direct Thyroxine 1.24 ng/dL (0.78-2.19)
[2024-02-10 12:22] LABS: Thyroid Stimulating Hormone 5.46 uIU/mL (0.47-4.68)
== END ==
PROVIDERS: PCP Nurse Practitioner; Referring Provider Nurse Practitioner; Visit Provider Nurse Practitioner
DX: E78.5 Hyperlipidemia, unspecified (principal); E34.9 Endocrine disorder, unspecified; M81.8 Other osteoporosis without current pathological fracture; M81.0 Age-related osteoporosis without current pathological fracture
CPT/HCPCS: 36415; 80053; 80061; 84439; 84443; 84481

== ENCOUNTER → 2024-02-16 09:49 | Outpatient (CLI) | payer MEDICARE, OTHER, SELFPAY ==
--- NOTE | 2024-02-16 09:50 | DI.RAD.S_ITS ---
PROCEDURE: XR DEXA AXIAL SKELETON INDICATIONS: Osteoporsis COMPARISON: [facility], CR, XR DEXA AXIAL SKELETON, 12/31/2022, 15:03. [facility], CR, XR DEXA AXIAL SKELETON, 02/08/2022, 11:44. FINDINGS: Lumbar Spine: Bone mineral density 0.969 g/cm2, T score -0.7, statistically stable. Left Forearm: Bone mineral density 0.644 g/cm2, T score -0.8, statistically stable. Fracture Risk Calculation (when applicable): Not listed as hip measurements not obtained. (T score greater or equal to -1.0 to: NORMAL) (T score from -1.1 to -2.4: OSTEOPENIA) (T score less than or equal to -2.5: OSTEOPOROSIS) IMPRESSION: Normal bone mineral density. Statistically stable from prior. Follow-up guidelines as follows: Osteoporosis: Consider a repeat DEXA and Vertebral Fracture Assessment (VFA) exam in 2 years or sooner if medically necessary, to reassess this patient's status. Osteopenia: Consider a repeat DEXA in 2-3 years to reassess this patient's status, or if there is a new clinical indication. Normal: Consider a repeat DEXA in 5 years or sooner, or if there is a new clinical indication. All treatment decisions require clinical judgment and consideration of individual patient factors, including patient preferences, comorbidities, previous drug use, risk factors not captured in the FRAX model (e.g., frailty, falls, vitamin D deficiency, increased bone turnover, interval significant decline in bone density ) and possible under- or over-estimation of fracture risk by FRAX. In addition, the NOF Guide recommends that FDA-approved medical therapies be considered in postmenopausal women and men age >= 50 years with a: * Hip or vertebral (clinical or morphometric) fracture * T-score of <=-2.5 at the spine or hip * Ten-year fracture probability by FRAX of >= 3% for hip fracture or >=20% for major osteoporotic fracture. People with diagnosed cases of osteoporosis or at high risk for fracture should have regular bone mineral density tests. For patients eligible for Medicare, routine testing is allowed once every 2 years. The testing frequency can be increased to one year for patients who have rapidly progressing disease, those who are receiving or discontinuing medical therapy to restore bone mass, or have additional risk factors. Dictated by: Oliver Segal M.D. on 02/16/2024 at 13:49 Approved by: Oliver Segal M.D. on 02/16/2024 at 13:50
== END ==
PROVIDERS: PCP Nurse Practitioner; Referring Provider Nurse Practitioner; Visit Provider Nurse Practitioner
DX: M81.8 Other osteoporosis without current pathological fracture (principal); E34.9 Endocrine disorder, unspecified
CPT/HCPCS: 77080; 77081

== ENCOUNTER → 2024-04-30 09:37 | Outpatient (CLI) | payer MEDICARE, OTHER, SELFPAY ==
[2024-04-30 11:18] LABS: Alanine Aminotransferase 19 IU/L (<35); Albumin 4.2 g/dL (3.5-5.0); Albumin Globulin Ratio 1.6 (1.0-2.8); Alkaline Phosphatase 58 U/L (38-126); Aspartate Aminotransferase 35 IU/L (14-36); BUN Creatinine Ratio 40.6 (6-22); Bilirubin Total 0.4 mg/dL (0.2-1.3); Blood Urea Nitrogen 28 mg/dL (7-17); Calcium 9.6 mg/dL (8.4-10.2); Carbon Dioxide 31 mmol/L (22-32); Chloride 100 mmol/L (98-107); Cholesterol 181 mg/dL (140-199); Estimated Glomerular Filt Rate > 60 mL/min (>60); Globulin 2.7 g/dL (1.7-4.1); Glucose 86 mg/dL (80-110); HDL Cholesterol 89 mg/dL (40-60); HEMOLYSIS 16 (0-50); LDL Cholesterol Calculated 84 mg/dL (<100); Potassium 4.9 mmol/L (3.4-5.1); Sodium 134 mmol/L (137-145); Total Protein 6.9 g/dL (6.3-8.2); Triglycerides 41 mg/dL (35-150)
== END ==
PROVIDERS: PCP Nurse Practitioner; Referring Provider Nurse Practitioner; Visit Provider Nurse Practitioner
DX: E78.5 Hyperlipidemia, unspecified (principal); I25.10 Atherosclerotic heart disease of native coronary artery without angina pectoris
CPT/HCPCS: 36415; 80053; 80061

== ENCOUNTER → 2024-05-04 08:29 | Outpatient (CLI) | payer MEDICARE, OTHER, SELFPAY ==
--- NOTE | 2024-05-04 08:31 | DI.CT.S_ITS ---
PROCEDURE: CT CHEST ABD PEL W CON INDICATIONS: abnormal CT, hx left breast cancer remotely 1996 TECHNIQUE: After the administration of intravenous contrast, 5 mm thick sections acquired from the lung apices to the symphysis. 5 mm coronal and sagittal reformats were performed, with additional 7 mm MIP reformats through the lungs. For radiation dose reduction, the following was used: automated exposure control, adjustment of mA and/or kV according to patient size. COMPARISON: Outside Facility, RG, CT CALCIUM SCORING, 03/25/2024, 11:45. FINDINGS: Image quality: Excellent. CHEST: Lower Neck: No enlarged lymph nodes. Thyroid: No thyroid nodules which require sonographic follow up, per consensus guidelines. Axillae: Left axillary lymph node dissection. Chest Wall: Left breast lumpectomy Lungs and Pleura: Left lower lobe part solid mass measuring 4.3 x 1.9 centimeter. The solid component measures 2.2 x 1.2 centimeter. There is close association to the chest Wall . Anterior left lung reticulation, presumably post radiation change. Heart: Heart size is normal. No pericardial effusion. Thoracic Vessels: The aorta and pulmonary arteries demonstrate normal size. Mediastinum and Kathy: No enlarged lymph nodes. Esophagus: No wall thickening. No hiatal hernia. ABDOMEN: Liver: No solid mass. Gallbladder: No radiopaque gallstones or wall thickening. Biliary ducts: No biliary dilation. Pancreas: No ductal dilation. Spleen: Size is within normal limits. Adrenal Glands: No adrenal nodules. Kidneys and Ureters: No hydronephrosis. No solid mass. No complex renal cystic lesion which requires follow up. Stomach and Bowel: Normal colonic caliber, without significant wall thickening. Peritoneum: No abnormal intraperitoneal fluid. No free air. Ventral Wall: No significant ventral hernia. Abdominal Nodes: No retroperitoneal or mesenteric adenopathy by size criteria. Vessels: Aorta and inferior vena cava are normal in size. PELVIS: Pelvic Organs: Simple appearing left ovarian cyst measuring 3.2 centimeter; this is unchanged since 2019. Bladder: No bladder wall thickening, accounting for underdistention. Pelvic Nodes: No enlarged lymph nodes. Miscellaneous: No inguinal hernias are seen. Bones: No aggressive osseous abnormality. IMPRESSION: Left lower lobe part solid mass concerning for low-grade pulmonary adenocarcinoma. Recommend tissue sampling or PET-CT. Broad contact with the pleura. No evidence of yamile disease. Left breast lumpectomy and left axillary lymph node dissection. No measurable disease in the surgical bed. Dictated by: Oliver Segal M.D. on 05/04/2024 at 10:51 Approved by: Oliver Segal M.D. on 05/04/2024 at 10:57
== END ==
PROVIDERS: PCP Student in an Organized Health Care Education/Training Program; Referring Provider Nurse Practitioner; Visit Provider Nurse Practitioner
DX: R91.8 Other nonspecific abnormal finding of lung field (principal); R93.89 Abnormal findings on diagnostic imaging of other specified body structures; Z85.3 Personal history of malignant neoplasm of breast
CPT/HCPCS: 71260; 74177; Q9967

== ENCOUNTER → 2024-06-08 08:57 | Outpatient (CLI) | payer MEDICARE, OTHER, SELFPAY ==
[2024-06-09 15:09] LABS: Fecal Immunochemical Test Negative (Negative)
== END ==
PROVIDERS: PCP Student in an Organized Health Care Education/Training Program; Referring Provider Student in an Organized Health Care Education/Training Program; Visit Provider Student in an Organized Health Care Education/Training Program
DX: Z12.11 Encounter for screening for malignant neoplasm of colon (principal)
CPT/HCPCS: 82274

== ENCOUNTER → 2024-06-11 07:59 | Outpatient (CLI) | payer MEDICARE, OTHER, SELFPAY ==
[2024-06-10 08:15] VITALS: BP 150/70; PULSE 56; RESP 18; TEMP 36; O2SAT 98
[2024-06-10 12:00] VITALS: BP 140/70; PULSE 58; RESP 20; O2SAT 97
[2024-06-10 13:00] VITALS: BP 140/67; PULSE 67; RESP 20; O2SAT 96
[2024-06-10 13:15] VITALS: BP 125/61; PULSE 56; RESP 12; O2SAT 98
[2024-06-11] VITALS (25 sets, daily range): BP systolic 124–167; BP diastolic 62–89; PULSE 53–79; RESP 12–21; O2SAT 95–100
--- NOTE | 2024-06-11 | DI.RAD.S_ITS ---
PROCEDURE: XR CHEST 1V INDICATIONS: 4 HOUR POST LUNG BX PNEUMO CHECK TECHNIQUE: One view of the chest was acquired. COMPARISON: [facility], CR, XR CHEST 1V, 06/11/2024, 12:30. [facility], CR, XR CHEST 1V, 06/11/2024, 10:28. FINDINGS: Surgical changes and devices: None. Lungs and pleura: There appears to be a trace left apical pneumothorax. Mediastinum: Mediastinal contours appear normal. Heart size is normal. Bones and chest wall: No suspicious bony lesions. Overlying soft tissues appear unremarkable. IMPRESSION: There appears to be a trace left apical pneumothorax. Dictated by: Murray Pinto M.D. on 06/11/2024 at 14:50 Approved by: Murray Pinto M.D. on 06/11/2024 at 15:43
--- NOTE | 2024-06-11 08:00 | DI.CT.S_ITS ---
PROCEDURE: CT BIOPSY LUNG LT Sedation analgesia for 30 minutes. INDICATIONS: Left lower lobe lung mass TECHNIQUE: The indications, alternatives, benefits, risks, and possible complications of the procedure were communicated to the patient. Informed written consent from the patient was obtained and placed in the chart. Continuous EKG and hemodynamic monitoring was started by trained personnel. The patient was brought to the CT suite and supervisor parking lot spiral CT imaging was performed with localization grid. The appropriate site for percutaneous access to the biopsy target was marked, was prepped and draped sterilely, and was infused with local anaesthesia. Under CT guidance, a core biopsy trocar and needle set was advanced to the biopsy target, and specimen(s) were obtained. The trocar and needle were then removed, and the patient was sent for post-procedure monitoring. COMPARISON: [facility], CT, CT CHEST ABD PEL W CON, 05/04/2024, 9:34. FINDINGS: Biopsy site: Left lower lobe Needle: 20 gauge biopsy needle with introducer trocar. Number of passes: 4 Medications: 1% lidocaine for local anaesthesia. IV Fentanyl and Versed for conscious sedation for 30 minutes (see nursing record). Complications: Small pneumothorax. IMPRESSION: 1. Successful CT-guided biopsy of left lower lobe mass. 2. During the procedure, a small pneumothorax occurred. This pneumothorax was aspirated and postprocedure there was only a trace residual pneumothorax. Patient will be monitored with serial chest x-rays. Dictated by: Murray Pinto M.D. on 06/11/2024 at 11:09 Approved by: Murray Pinto M.D. on 06/11/2024 at 11:11
[2024-06-11 09:05] LABS: Prothrombin Time 11.7 SECONDS (9.4-12.5)
[2024-06-11 09:20] LABS: Hematocrit 42.4 % (36-46); Hemoglobin 14.3 g/dL (12.0-16.0); Mean Corpuscular HGB Conc 33.7 % (30-36); Mean Corpuscular Hemoglobin 31.6 PG (26-34); Mean Corpuscular Volume 93.7 fL (80-100); Platelet Count 230 X10^3/uL (150-400); Red Blood Cell Count 4.52 X10^6/uL (4.0-5.2); Red Cell Distribution Width 14.4 % (11.6-14.8); White Blood Cell Count 5.7 X10^3/uL (4.5-11.0)
--- NOTE | 2024-06-11 10:13 | PATH_ITS ---
[facility] Accession Number: [id number] No. of containers..01 Tissue . 01 Material submitted: . lung - LEFT LOWER LOBE LUNG . 01 Diagnosis: LUNG, LEFT LOWER LOBE, IMAGE-GUIDED BIOPSIES: Adenocarcinoma with lepidic pattern, please see microscopic description. MRV 06/14/2024 1644 Local . 01 Comment: The biopsy result was called to Dr. Ashley Purvis, on 06/14/2024 at 4:15 pm. . Molecular studies can be performed upon request. However, they may also be performed on the excision specimen. . 01 Electronically signed: . Sandra Del Cid MD, Pathologist NPI- [id number] . 01 Gross description: . Received in formalin, labeled with two identifiers and no site on jar, are three thin, delicate needle cores measuring 0.7-1.1 cm in length by less than 0.1 cm in diameter. Submitted entirely in cassette A1. ([id number]) /R 06/12/2024 1248 Local . 01 Microscopic: . Microscopic examination of the lung core biopsies reveals atypical bronchial epithelium with mild to moderate cytologic atypia, and lepidic growth pattern. . Although stromal invasion is not definitely seen in this biopsy, the diagnosis of adenocarcinoma in situ cannot be rendered with certainty on a core biopsy unless the entire lesion is examined. . Correlation with imaging studies is recommended. . As part of ongoing quality control inspector heading, this case is also reviewed by Dr. Tiana Dow, who agrees with the interpretation. . 01 Pathologist provided ICD-10: C34.80 . 01 CPT . 264815 Specimen Comment: A courtesy copy of this report has been sent to [facility] Pathology, Specimen Comment: [phone] Performed at: [address] [address], [place], [place] [id number] MD Cl Kuhn MD Phone: [phone]
--- NOTE | 2024-06-11 10:26 | DI.RAD.S_ITS ---
PROCEDURE: XR CHEST 1V INDICATIONS: Post lung biopsy TECHNIQUE: One view of the chest was acquired. COMPARISON: [facility], CT, CT CHEST ABD PEL W CON, 05/04/2024, 9:34. FINDINGS: Surgical changes and devices: Left chest wall surgical clips. Lungs and pleura: The left lower lobe lesion seen on prior CT is not well appreciated by chest x-ray. Known trace left pneumothorax status post biopsy is not well appreciated. Mediastinum: Mediastinal contours appear normal. Heart size is normal. Bones and chest wall: No suspicious bony lesions. Overlying soft tissues appear unremarkable. IMPRESSION: Known trace left pneumothorax is not well appreciated by chest x-ray. Left lower lobe lesion seen on prior chest CT is not seen by x-ray. Dictated by: Murray Pinto M.D. on 06/11/2024 at 11:44 Approved by: Murray Pinto M.D. on 06/11/2024 at 11:47
[2024-06-11] MEDS: fentaNYL 100 MCG/2 ML INJ 25 MCG IV (11:44)
[2024-06-11] MEDS: LIDOCAINE 1% 20 ML INJ (11:45)
--- NOTE | 2024-06-11 12:30 | DI.RAD.S_ITS ---
PROCEDURE: XR CHEST 1V INDICATIONS: POST LUNG BIOPSY TECHNIQUE: One view of the chest was acquired. COMPARISON: [facility], CT, CT BIOPSY LUNG LT, 06/11/2024, 9:45. [facility], CR, XR CHEST 1V, 06/11/2024, 10:28. FINDINGS: Surgical changes and devices: Left chest surgical clips, suspect prior breast carcinoma.. Lungs and pleura: Lungs are abnormal with pulmonary hyperexpansion likely representing COPD and no appreciable pneumothorax is seen on the left, the side of CT-guided biopsy earlier same day. No pleural effusions. Mediastinum: Mediastinal contours appear normal. Heart size is normal. Bones and chest wall: No suspicious bony lesions. Overlying soft tissues appear unremarkable. IMPRESSION: No pneumothorax after left-sided lung biopsy under CT guidance earlier same day. Pulmonary hyperexpansion. Dictated by: Elijah Durham M.D. on 06/11/2024 at 13:10 Approved by: Elijah Durham M.D. on 06/11/2024 at 13:12
--- NOTE | 2024-07-14 16:21 | PC.NURSE ---
Late entry. Fentanyl 25 mcg IV and Midazolam 0.5mg IV given @ 0956 on 06/11/[address] guided lung biopsy by this author Jeniffer Camara RN.
== END ==
LOC: CT 07:59
PROVIDERS: Radiology Diagnostic Radiology; PCP Student in an Organized Health Care Education/Training Program; Referring Provider Internal Medicine Critical Care Medicine; Visit Provider Internal Medicine Critical Care Medicine
DX: C34.32 Malignant neoplasm of lower lobe, left bronchus or lung (principal); A42.0 Pulmonary actinomycosis; R91.8 Other nonspecific abnormal finding of lung field; J70.1 Chronic and other pulmonary manifestations due to radiation
CPT/HCPCS: 32408; 71045; 85027; 85610

== ENCOUNTER 2024-06-11 16:03 | Observation (INO) | payer MEDICARE, OTHER, SELFPAY ==
[2024-06-11 16:08] VITALS: BMI 114.5
[2024-06-11 16:41] VITALS: BP 149/75; PULSE 64; RESP 16; TEMP 36.7; O2SAT 99
[2024-06-11 16:55] VITALS: BMI 114.5
[2024-06-11 16:58] VITALS: BMI 17.7
--- NOTE | 2024-06-11 17:42 | PM.HP.1 ---
History of Present Illness History of Present Illness Date Patient Seen: 06/11/24 Time Patient Seen: 17:05 Date of Onset of Symptoms: 06/11/24 Chief complaint: post lung biopsy w small pneumothorax Narrative: 79-year-old woman underwent a left lower lobe lung biopsy of an incidentally discovered lung mass detected initially after a coronary calcium CT scan, and was noted to have a small but expanding pneumothorax on follow-up serial radiographs in the diagnostic imaging department. She is admitted for observation and further evaluation. She denies chest pain or breathing problems, and otherwise states she is doing well. 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 Social History household members: significant other Smoking Status: Never smoker second hand exposure: No alcohol intake: current substance use type: does not use Meds Home Medications and Allergies Home Medications Medication Instructions Recorded Confirmed Type [JAY/MAG/ZINC] 1,000 mg PO QDAY ##0 10/30/17 06/11/24 History [CBD OIL] topical BID ##0 10/30/17 06/08/24 History Flaxseed oil 1,200 mg PO .qday 02/16/18 06/11/24 History Multivitamin 1 tab PO .QDAY 02/16/18 06/11/24 History Turmeric See Rx Instructions .Route .COMPLEX 02/16/18 06/11/24 History famotidine 20 mg tablet 20 mg PO DAILY 12/19/20 06/11/24 History cholecalciferol (vitamin D3) 25 25 mcg PO BID 01/08/22 06/11/24 History mcg (1,000 unit) capsule rosuvastatin 5 mg tablet 5 mg PO DAILY #90 tabs 04/05/24 06/11/24 Rx estradiol 10 mcg vaginal tablet See Rx Instructions vaginal 06/08/24 06/11/24 Rx .COMPLEX #44 tabs Allergies Allergy/AdvReac Type Severity Reaction Status Date / Time hydroxychloroquine Allergy Intermediate Verified 06/08/24 08:26 NSAIDS (Non-Steroidal AdvReac Severe STRICTURE Verified 06/08/24 08:26 Anti-Inflamma BETWEEN MY [NSAIDS (NON-STEROIDAL STOMACH ANTI-INFLAMMA] AND INTESTINES oxycodone [OXYCODONE] AdvReac Severe DIZZINESS Verified 06/08/24 08:26 AND FAINTING Sulfur based drugs AdvReac Severe Anaphylaxis Uncoded 06/08/24 08:26 Review of Systems Review of Systems ROS: Yes All systems reviewed with the patient and are negative except as otherwise documented Exam Vital Signs (past 8 hours): - 06/11/24 16:08 Oxygen Delivery Method Room Air Oxygen Delivery Method Room Air Narrative Exam Narrative: GENERAL: This is a well-nourished, well-developed patient, in no apparent distress. HEAD: Atraumatic. Normocephalic. No temporal or scalp tenderness. EYES: Pupils equal round and reactive. Extraocular motions intact. No scleral icterus. No injection or drainage. ENT: Mucous membranes pink and moist. NECK: Trachea midline. No JVD, bruits or lymphadenopathy. Supple, nontender, no meningeal signs. CARDIOVASCULAR: Regular rate and rhythm without murmurs, gallops, or rubs. RESPIRATORY: Clear to auscultation. GASTROINTESTINAL: Abdomen soft, non-tender, nondistended. EXTREMITIES: No clubbing, cyanosis, or edema. BACK: Nontender without deformity or crepitance. No flank tenderness. NEUROLOGIC: Alert, oriented, speech fluent, full upper and lower motor strength, no focal deficits evident. DERMATOLOGIC: No rashes or skin lesions. Objective Imaging *: Radiologist's impression: 1. Lung biopsy CT 1. Successful CT-guided biopsy of left lower lobe mass. 2. During the procedure, a small pneumothorax occurred. This pneumothorax was aspirated and postprocedure there was only a trace residual pneumothorax. Patient will be monitored with serial chest x-rays. 2. Chest x-ray Known trace left pneumothorax is not well appreciated by chest x-ray. Left lower lobe lesion seen on prior chest CT is not seen by x-ray. 3. Chest x-ray No pneumothorax after left-sided lung biopsy under CT guidance earlier same day. Pulmonary hyperexpansion. 4. Chest x-ray: Per radiology this showed a small expanding pneumothorax, report not found insistent Assessment & Plan Assessment & Plan narrative: 1. Post lung biopsy pneumothorax. 2. Left lower lobe mass, status post CT-guided lung biopsy 06/11/2024 3. Coronary atherosclerosis. 4. Hypertension 5. Hyperlipidemia 6. Osteoporosis 7. Code status: Full code Plan: -admit to observation -serial chest radiographs -continue routine home medications -low risk for DVT, ambulation encouraged Quality VTE Deep Vein Thrombosis/Pulmonary Embolism Present on Admission: No IH PROFEE Charge Codes Initial inpatient/observation care: [id number]
[2024-06-11 18:38] LABS: MRSA (Nasal) PCR NOT DETECTED (Not Detect)
[2024-06-11 20:00] VITALS: BP 129/68; PULSE 65; RESP 20; TEMP 36.8; O2SAT 95
[2024-06-11] MEDS: ACETAMINOPHEN 325 MG TABLET 650 MG PO (20:08)
--- NOTE | 2024-06-11 21:00 | DI.RAD.S_ITS ---
PROCEDURE: XR CHEST 1V INDICATIONS: pneumothorax TECHNIQUE: One view of the chest was acquired. COMPARISON: [facility], CR, XR CHEST 1V, 06/11/2024, 14:41. [facility], CR, XR CHEST 1V, 06/11/2024, 12:30. FINDINGS: Surgical changes and devices: Chest and axillary clips. Lungs and pleura: Persistent small left apex pneumothorax. No dense consolidation or effusion component. Mediastinum: Normal heart size, unchanged Bones and chest wall: Unremarkable IMPRESSION: Persistent small apex pneumothorax is seen. Pleural separation measures about 2 cm. Dictated by: Golden Azul M.D. on 06/12/2024 at 9:12 Approved by: Golden Azul M.D. on 06/12/2024 at 9:13
[2024-06-12 04:14] VITALS: BP 143/73; PULSE 66; RESP 16; TEMP 36.4; O2SAT 96
[2024-06-12] MEDS: ACETAMINOPHEN 325 MG TABLET 650 MG PO (04:17)
[2024-06-12 08:00] VITALS: BP 156/83; PULSE 70; RESP 12; TEMP 36.2; O2SAT 99
--- NOTE | 2024-06-12 08:00 | DI.RAD.S_ITS ---
PROCEDURE: XR CHEST 1V INDICATIONS: pneumothorax TECHNIQUE: One view of the chest was acquired. COMPARISON: [facility], CR, XR CHEST 1V, 06/11/2024, 20:25. [facility], CR, XR CHEST 1V, 06/11/2024, 14:41. FINDINGS: Surgical changes and devices: Left chest wall and axillary clips. Lungs and pleura: Stable to slightly decreased left apex pneumothorax, pleural separation of about 1.7 cm. No dense consolidation or effusion component. Mediastinum: Heart size is normal and unchanged. Bones and chest wall: Degenerative findings. IMPRESSION: Stable to slightly decreased left apex pneumothorax. Dictated by: Golden Azul M.D. on 06/12/2024 at 9:13 Approved by: Golden Azul M.D. on 06/12/2024 at 9:15
[2024-06-12] MEDS: FAMOTIDINE 20 MG TABLET PO (08:53)
--- NOTE | 2024-06-12 13:15 | PM.DS.1 ---
History of Present Illness History of Present Illness Date Patient Seen: 06/12/24 Time Patient Seen: 08:23 Chief complaint: post lung biopsy w small pneumothorax Narrative: 79-year-old woman underwent a left lower lobe lung biopsy of an incidentally discovered lung mass detected initially after a coronary calcium CT scan, and was noted to have a small but expanding pneumothorax on follow-up serial radiographs in the diagnostic imaging department. She is admitted for observation and further evaluation. She denies chest pain or breathing problems, and otherwise states she is doing well. Discharge Providers Provider Date of admission: 06/11/24 16:03 Discharge Date: 06/12/24 Primary care physician: Zoila Gonzalez MD Discharge provider: Lon Vázquez MD Summary Hospital Course Discharge Diagnosis: 1. Left pneumothorax complicating left chest CT guided lung biopsy 2. Left lower lobe mass 3. Coronary atherosclerosis. 4. Hypertension 5. Hyperlipidemia 6. Osteoporosis Hospital Course: The patient was admitted monitored clinically and with serial radiographs. She had a stable to improving left-sided pneumothorax. She was asymptomatic throughout her hospitalization. Outpatient follow-up is advised. Status at Discharge Cognitive/behavioral status at discharge: oriented Functional status at discharge: independent ambulation Overall status at discharge: patient is back to baseline Time Spent with Patient Time spent: Less than 30 minutes Exam Vital Signs (past 8 hours): - 06/12/24 08:00 Temperature 97.2 F L Pulse Rate 70 Respiratory Rate 12 Blood Pressure 156/83 H Pulse Oximetry 99 Oxygen Flow Rate 0 Oxygen Delivery Method Room Air Oxygen Flow Rate 0 Narrative Exam Narrative: GENERAL: This is a well-nourished, well-developed patient, in no apparent distress. EYES: Pupils equal round and reactive. Extraocular motions intact. No scleral icterus. No injection or drainage. ENT: Mucous membranes pink and moist. NECK: Trachea midline. No JVD, bruits or lymphadenopathy. Supple, nontender, no meningeal signs. CARDIOVASCULAR: Regular rate and rhythm without murmurs, gallops, or rubs. RESPIRATORY: Clear to auscultation. GASTROINTESTINAL: Abdomen soft, non-tender, nondistended. EXTREMITIES: No clubbing, cyanosis, or edema. NEUROLOGIC: Alert, oriented, speech fluent, full upper and lower motor strength, no focal deficits evident. DERMATOLOGIC: No rashes or skin lesions. Objective Imaging *: Radiologist's impression: 1. Lung biopsy CT 06/11/2024: 1. Successful CT-guided biopsy of left lower lobe mass. 2. During the procedure, a small pneumothorax occurred. This pneumothorax was aspirated and postprocedure there was only a trace residual pneumothorax. Patient will be monitored with serial chest x-rays. 2. Chest x-ray: 06/11/2024: Known trace left pneumothorax is not well appreciated by chest x-ray. Left lower lobe lesion seen on prior chest CT is not seen by x-ray. 3. Chest x-ray: 06/11/2024: No pneumothorax after left-sided lung biopsy under CT guidance earlier same day. Pulmonary hyperexpansion. 4. Chest x-ray: 06/11/2024: Persistent small apex pneumothorax is seen. Pleural separation measures about 2 cm. 5. Chest x-ray 06/12/2024: Stable to slightly decreased left apex pneumothorax. 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 Social History household members: significant other Smoking Status: Never smoker second hand exposure: No alcohol intake: current substance use type: does not use Discharge Plan Discharge Plan Patient Disposition: Home Provider Discharge Comment: Followup with Dr. Gonzalez 1 week Discharge orders & Medications Prescriptions: Continued estradiol 10 mcg tablet See Rx Instructions vaginal .COMPLEX Qty: 44 3RF Rx Instructions: Inser vaginally every night at bedtime daily x14 days then 2-3 times per week thereafter vaginally; Flaxseed oil 1,200 mg PO .qday Turmeric See Rx Instructions .ROUTE .COMPLEX Patient Comments: 1200 mg (600 mg x 2) by mouth once daily. ; Rx Instructions: 1200 mg (600 mg x 2) by mouth once daily. ; Multivitamin 1 tab PO .QDAY [JAY/MAG/ZINC] 1,000 mg PO QDAY Qty: 0 cholecalciferol (vitamin D3) 25 mcg (1,000 unit) capsule 25 mcg PO BID rosuvastatin 5 mg tablet 5 mg PO DAILY Qty: 90 3RF famotidine 20 mg tablet 20 mg PO DAILY Follow up/Referrals: Zoila Gonzalez MD [Primary Care Provider] - Visit Report/Discharge Packet Stand Alone Forms: Patient Portal/API, Stroke Signs & Symptoms Discharge Data Primary Care Provider: Zoila Gonzalez Attending Provider: Lon Vázquez V Admit Date/Time: 06/11/24 16:03 Quality VTE Deep Vein Thrombosis/Pulmonary Embolism Present on Admission: No MIPS - Admit I confirm the patient?s Advance Care Plan is present, Code status is documented, Surrogate decision maker is in patient?s record [If Yes, STOP here]: Yes MIPS - Meds 'Current medications' to include all prescriptions, [id number] products, herbals, cannabis/cannabidiol products, and vitamin/mineral/dietary (nutritional) supplements. I have utilized all available resources to obtain, update, or review the patient?s current medications. [If Yes, STOP here]: Yes MIPS - DC The patient has a history of heart transplant or Left Ventricular Assist Device (LVAD). If yes, STOP here.: No The patient has current or prior documentation of left ventricular ejection fraction (LVEF) less than or equal to 40%, or moderate or severely depressed left ventricular systolic function.: No A. The patient was prescribed or already taking an Angiotensin-Converting Enzyme (GLADIS) Inhibitor, or Angiotensin Receptor Tien (ARB).: No B. The patient was prescribed or already taking a beta-tien. [If Yes to Both A & B, STOP here]: No Patient not prescribed/taking GLADIS or ARB, no reason given.: No Patient not prescribed/taking beta-tien, no reason given.: No PROFEE Charge Codes Discharge inpatient/observation: [id number]
== END 2024-06-12 11:15 | disposition home or self-care (01) ==
LOC: AC 16:07 → ICU 16:15
PROVIDERS: Admitting Provider Internal Medicine; PCP Student in an Organized Health Care Education/Training Program; Referring Provider Internal Medicine; Visit Provider Internal Medicine
DX: J95.811 Postprocedural pneumothorax (principal); R91.8 Other nonspecific abnormal finding of lung field
CPT/HCPCS: 32408; 71045; 85027; 85610; 87797; G0378; A9270; G0379; J2250; J3010

== ENCOUNTER → 2024-07-01 08:19 | Outpatient (CLI) | payer MEDICARE, OTHER, SELFPAY ==
[2024-06-11 16:58] VITALS: BMI 17.7
== END ==
PROVIDERS: PCP Student in an Organized Health Care Education/Training Program; Referring Provider Internal Medicine Critical Care Medicine; Visit Provider Internal Medicine Critical Care Medicine
DX: R06.02 Shortness of breath (principal); R91.8 Other nonspecific abnormal finding of lung field; Z86.16 Personal history of COVID-19; J98.8 Other specified respiratory disorders; C34.92 Malignant neoplasm of unspecified part of left bronchus or lung
CPT/HCPCS: 94060; 94726; 94729

== ENCOUNTER → 2025-02-17 12:40 | Outpatient (CLI) | payer MEDICARE, OTHER, SELFPAY ==
--- NOTE | 2025-02-17 12:42 | DI.RAD.S_ITS ---
PROCEDURE: XR DEXA AXIAL SKELETON INDICATIONS: Bone Density Screening COMPARISON: [facility], , XR DEXA AXIAL SKELETON, 02/16/2024, 10:07. [facility], CR, XR DEXA AXIAL SKELETON, 12/31/2022, 15:03. FINDINGS: Lumbar Spine: L1-L4. Bone mineral density 0.934 g/cm2, T score -1.0. Left Forearm: Bone mineral density 0.617 g/cm2, T score -1.3, there is significant interval decrease in bone mineral density-4.2% *. (T score greater or equal to -1.0 to: NORMAL) (T score from -1.1 to -2.4: OSTEOPENIA) (T score less than or equal to -2.5: OSTEOPOROSIS) IMPRESSION: Osteopenia. There is significant interval decrease in bone mineral density at the left forearm. Follow-up guidelines as follows: Osteoporosis: Consider a repeat DEXA and Vertebral Fracture Assessment (VFA) exam in 2 years or sooner if medically necessary, to reassess this patient's status. Osteopenia: Consider a repeat DEXA in 2-3 years to reassess this patient's status, or if there is a new clinical indication. Normal: Consider a repeat DEXA in 5 years or sooner, or if there is a new clinical indication. All treatment decisions require clinical judgment and consideration of individual patient factors, including patient preferences, comorbidities, previous drug use, risk factors not captured in the FRAX model (e.g., frailty, falls, vitamin D deficiency, increased bone turnover, interval significant decline in bone density ) and possible under- or over-estimation of fracture risk by FRAX. In addition, the NOF Guide recommends that FDA-approved medical therapies be considered in postmenopausal women and men age >= 50 years with a: * Hip or vertebral (clinical or morphometric) fracture * T-score of <=-2.5 at the spine or hip * Ten-year fracture probability by FRAX of >= 3% for hip fracture or >=20% for major osteoporotic fracture. Dictated by: Ángel Valenzuela M.D. on 02/18/2025 at 11:59 Approved by: Ángel Valenzuela M.D. on 02/18/2025 at 12:00
--- NOTE | 2025-02-17 13:19 | DI.MG.S_ITS ---
Patient Name: JACIEL AWAN date: 1945 Sex: F Attending Physician: Lisa Indications: Date: 02/17/2025 17:56 At the request of: JORDAN EMMANUEL Procedure: MM screening mammo BI MM screening mammo BI: 02/17/2025. BI-RADS: 0 CLINICAL: 79-year old female for bilateral screening mammogram. No Tyrer-Cuzick risk score calculation due to the patient's personal history of breast cancer. Patient reports a history of left breast carcinoma diagnosed at age 54. Status-post left lumpectomy with radiation therapy and hormonal therapy. No first-degree family history of breast cancer. Current reported family history of breast cancer: paternal aunt. The patient had a prior left breast biopsy. PRIOR EXAMS 01/20/2024, 12/31/2022, 12/17/2021, 11/21/2020. MAMMOGRAPHY TECHNIQUE: 2D and 3D (tomosynthesis) digital mammographic views obtained, with additional images as needed for full coverage. Current study was also evaluated with a Computer Aided Detection (CAD) system. DENSITY C. The breasts are heterogeneously dense, which may obscure small masses. MAMMOGRAPHY FINDINGS Right: CC only, Inner, Far Anterior depth: Asymmetry needing additional imaging evaluation. Left: Benign-appearing post-surgical changes noted on the left. There are no suspicious masses, calcifications, or other findings in the breast. IMPRESSION: Right (Asymmetry): CC only, Inner, Far Anterior depth * Incomplete - asymmetry needing additional imaging evaluation. Left Continued Report - Page 2 of 2 Patient Name: JACIEL AWAN date: 1945 Sex: F Attending Physician: Lisa Indications: Date: 02/17/2025 17:56 At the request of: JORDAN EMMANUEL Procedure: MM screening mammo BI * No evidence of malignancy with benign findings. RECOMMENDATIONS Right: CC only, Inner, Far Anterior depth * Further evaluation with diagnostic mammography and diagnostic ultrasound. Ultrasound to be performed only if needed. OVERALL ASSESSMENT CATEGORY BI-RADS-0: Incomplete - Need Additional Imaging Evaluation. ELECTRONICALLY SIGNED: Felicita Jaime M.D. on 02/17/2025 at 05:56:03 PM PT Interpreting Station ID: [id number]
== END ==
LOC: RAD 12:41
PROVIDERS: PCP Student in an Organized Health Care Education/Training Program; Referring Provider Student in an Organized Health Care Education/Training Program; Visit Provider Student in an Organized Health Care Education/Training Program
DX: Z12.31 Encounter for screening mammogram for malignant neoplasm of breast (principal); M81.0 Age-related osteoporosis without current pathological fracture; E34.9 Endocrine disorder, unspecified; Z80.3 Family history of malignant neoplasm of breast; Z85.3 Personal history of malignant neoplasm of breast; N64.89 Other specified disorders of breast; M85.832 Other specified disorders of bone density and structure, left forearm
CPT/HCPCS: 77063; 77067; 77080

== ENCOUNTER → 2025-05-10 06:56 | Outpatient (CLI) | payer MEDICARE, OTHER, SELFPAY ==
[2025-05-10 09:20] LABS: Cholesterol 190 mg/dL (140-199); HDL Cholesterol 96 mg/dL (40-60); Triglycerides 45 mg/dL (35-150)
[2025-05-10 09:23] LABS: Blood Urea Nitrogen 19 mg/dL (7-17); Calcium 9.1 mg/dL (8.4-10.2); Carbon Dioxide 33 mmol/L (22-32); Chloride 98 mmol/L (98-107); Estimated Glomerular Filt Rate > 60 mL/min (>60); Glucose 82 mg/dL (70-99); HEMOLYSIS < 15 (0-50); Potassium 4.6 mmol/L (3.4-5.1); Sodium 135 mmol/L (137-145)
== END ==
PROVIDERS: PCP Student in an Organized Health Care Education/Training Program; Referring Provider Internal Medicine Endocrinology, Diabetes & Metabolism; Visit Provider Internal Medicine Endocrinology, Diabetes & Metabolism
DX: E78.5 Hyperlipidemia, unspecified (principal); M81.0 Age-related osteoporosis without current pathological fracture
CPT/HCPCS: 36415; 80048; 80061